=== PATIENT | female | born 1950 | race Caucasian/White ===

== ENCOUNTER 2017-03-24 09:30 | Outpatient (RCR) | payer MEDICARE, OTHER, SELFPAY | END 2017-03-31 23:59 | LOC: DC 09:30 | PROVIDERS: Family Provider Family Medicine; PCP Family Medicine; Visit Provider Family Medicine | DX: E11.9 Type 2 diabetes mellitus without complications (principal); Z71.3 Dietary counseling and surveillance | CPT/HCPCS: G0109 ==

== ENCOUNTER 2017-10-21 08:30 | Outpatient (RCR) | payer MEDICARE, OTHER, SELFPAY ==
--- NOTE | 2017-08-02 09:30 | DT_ITS ---
This patient was seen during an EMR downtime August 02, 2017 - August 09, 2017. This patient may have a combination of paper and electronic documentation or all paper documentation. All documentation is viewable within the e-chart portion of [facility] for each patient visit.
--- NOTE | 2017-08-10 16:57 | HP.PTEVAL ---
Patient's Visit Information SHANTEL FOX is a 66 year old F referred to Physical Therapy by Cristina Segovia DPM with a diagnosis of Gait instability. Date of Evaluation: 08/02/17 Physical Therapist: Augusto Hutchins DPT, OC - Visit Plan Frequency: 2 Duration: 4 Plan: Neurocom balance assessment and 2x/week for 4 weeks for LE strength adn balance activities - Subjective Subjective: Has diabetic neuropathy for 3 years. Makes baalnce challenging. Getting out of bed can be difficult. Needs to hang on to use steps. No AD needed. Sleep Ok.Not employed. Basic ADLs OK. Enjoys [employer] sports whose age is 24 to 11 yo. Needs to hold on to climb bleachers and careful on grass. Has to do steps one [place]. One fall walking dog - Pain foot diabetic Pain Intensity (Out of 10): 3 Pain Intensity Range: 3 - Objective LE strength 4/5 knees adn ankles and 4- in hips. reflexes 2/3 patella and achilles. Sensation decreased in bottom of feet. ROM and flexibility in LE WFL. Coordination reciprocal toe and heel tapping good and garcia to heel goodl. Romberg eo 30 sec, ec 30 sec foam also 30 sec eo/ec - Balance Scores Functional Gait Assessment Score: 24 % Disability: 20.0000 - Goals Goal 1:: I approp strength and balance ex Goal Time Frame: 4-6 Weeks Goal 2:: Neurocom balance assess complete Goal Time Frame: 2 Weeks Goal 3:: Feel balance 50% improved overall Goal Time Frame: 4-6 Weeks Goal 4:: FGA 25/30 to diminish fall risk Goal Time Frame: 4-6 Weeks - Rehabilitation Potential Physical Therapy Diagnosis: Unstable gait. Rehabilitation Potential: Fair - Anticipated Interventions Patient/Client Instruction: Educate patient on: Condition, Plan of Care For the Purpose of:: To improve balance Therapeutic Exercise to Include: Strength training, Balance training For the Purpose of:: To decrease pain, To improve safety with gait, To improve safety Thank you for the opportunity to evaluate your patient. For Medicare and Medicare HMO plans, please review the plan of care and approve it. It will need to be FAXED BACK to us at [phone] for Medicare purposes. Please let me know if there are questions or concerns regarding this plan of care. Physician Signature: Date:
--- NOTE | 2017-08-10 17:03 | HP.PTEVAL_ITS ---
Patient's Visit Information SHANTEL FOX is a 66 year old F referred to Physical Therapy by Cristina Segovia DPM with a diagnosis of Gait instability. Date of Evaluation: 08/02/17 Physical Therapist: Augusto Hutchins DPT, OC - Visit Plan Frequency: 2 Duration: 4 Plan: Neurocom balance assessment and 2x/week for 4 weeks for LE strength adn balance activities - Subjective Subjective: Has diabetic neuropathy for 3 years. Makes baalnce challenging. Getting out of bed can be difficult. Needs to hang on to use steps. No AD needed. Sleep Ok.Not employed. Basic ADLs OK. Enjoys [employer] sports whose age is 24 to 11 yo. Needs to hold on to climb bleachers and careful on grass. Has to do steps one at at [employer]. One fall walking dog - Pain foot diabetic Pain Intensity (Out of 10): 3 Pain Intensity Range: 3 - Objective LE strength 4/5 knees adn ankles and 4- in hips. reflexes 2/3 patella and achilles. Sensation decreased in bottom of feet. ROM and flexibility in LE WFL. Coordination reciprocal toe and heel tapping good and garcia to heel goodl. Romberg eo 30 sec, ec 30 sec foam also 30 sec eo/ec - Balance Scores Functional Gait Assessment Score: 24 % Disability: 20.0000 - Goals Goal 1:: I approp strength and balance ex Goal Time Frame: 4-6 Weeks Goal 2:: Neurocom balance assess complete Goal Time Frame: 2 Weeks Goal 3:: Feel balance 50% improved overall Goal Time Frame: 4-6 Weeks Goal 4:: FGA 25/30 to diminish fall risk Goal Time Frame: 4-6 Weeks - Rehabilitation Potential Physical Therapy Diagnosis: Unstable gait. Rehabilitation Potential: Fair - Anticipated Interventions Patient/Client Instruction: Educate patient on: Condition, Plan of Care For the Purpose of:: To improve balance Therapeutic Exercise to Include: Strength training, Balance training For the Purpose of:: To decrease pain, To improve safety with gait, To improve safety Thank you for the opportunity to evaluate your patient. For Medicare and Medicare HMO plans, please review the plan of care and approve it. It will need to be FAXED BACK to us at [phone] for Medicare purposes. Please let me know if there are questions or concerns regarding this plan of care. Physician Signature: Date:
--- NOTE | 2017-08-24 11:57 | HP.PTCOM ---
PT Communication Note 08/24/[address] Cristina Segovia, DPChris , Thank you for the referral of Katherine to [facility] for balance testing. I have enclosed a copy of the results for your review. In summation, she scored low on the somatosensory portion of the Sensory Organization Test. She scored poorly on the posterior translations on the Motor Control Test. Forward and R excursion was low on the Limits of Stability Test. With these results in mind, I plan to see her 2x/week for 4 weeks for instruction and progression of LE strength and balance exercises to address the above deficits and work toward independent HEP. Please do not hesitate to call me if you have questions. Thank you. Sincerely, Augusto Hutchins DPT, OC Contact Information
--- NOTE | 2017-08-24 12:00 | HP.PTCOM_ITS ---
PT Communication Note 08/24/[address] Cristina Segovia, DPChris , Thank you for the referral of Katherine to [facility] for balance testing. I have enclosed a copy of the results for your review. In summation, she scored low on the somatosensory portion of the Sensory Organization Test. She scored poorly on the posterior translations on the Motor Control Test. Forward and R excursion was low on the Limits of Stability Test. With these results in mind, I plan to see her 2x/week for 4 weeks for instruction and progression of LE strength and balance exercises to address the above deficits and work toward independent HEP. Please do not hesitate to call me if you have questions. Thank you. Sincerely, Augusto Hutchins DPT, OC Contact Information
--- NOTE | 2017-12-16 11:50 | HP.PT.NRP ---
HP - Discharge Summary (1) - Patient Information SHANTEL FOX was seen in my office for initial evaluation on 08/02/17. The following Plan of Care was established for this patient: Initial Frequency: 2 Initial Duration: 4 - Anticipated Interventions Patient/Client Instruction: Educate patient on: Condition, Plan of Care For the Purpose of:: To improve balance Therapeutic Exercise to Include: Strength training, Balance training For the Purpose of:: To decrease pain, To improve safety with gait, To improve safety This patient was last seen in our office 10/21/17. Pertinent comments regarding their Physical therapy will appear below: Pt seen 8 visits kaiden cancelled his last two adn neglected to reschedule. It has been almsot two months and I will discontinue due to nonattendance. At this point I will be discontinuing this patient from physical therapy. I would be happy to see this patient again in the future if found appropriate by the physician. Thank you! Augusto Hutchins, DPT, OC
== END 2017-10-21 19:00 | disposition home or self-care (01) ==
LOC: PT 08:30
PROVIDERS: Family Provider Family Medicine; PCP Family Medicine; Visit Provider Podiatrist
DX: R26.2 Difficulty in walking, not elsewhere classified (principal); R26.9 Unspecified abnormalities of gait and mobility
CPT/HCPCS: 97110; 97162; 97750

== ENCOUNTER → 2018-03-24 15:26 | Outpatient (CLI) | payer MEDICARE, OTHER, SELFPAY ==
--- NOTE | 2018-03-24 15:32 | RAD_ITS ---
HISTORY: Pain COMPARISON: None FINDINGS: XR right ankle 3 views No fracture or acute disease. The tibiotalar joint space appears preserved. No bony erosions. Mild soft tissue swelling of the lateral ankle and mild atherosclerotic calcifications. Plantar calcaneal spur. RAD/Ankle min 3 Views IMPRESSION: 1. No fracture or acute disease. 2. Atherosclerotic calcifications and mild lateral soft tissue swelling. 3. The ankle joint is preserved. at 0540 Reported and signed by: Sundeep Howard MD Electronically Signed: Sundeep Howard, at 5:39 EST Tel , Service support ,
== END ==
PROVIDERS: Family Provider Family Medicine; PCP Family Medicine; Referring Provider Family Medicine; Visit Provider Family Medicine
DX: M25.571 Pain in right ankle and joints of right foot (principal)
CPT/HCPCS: 73610

== ENCOUNTER 2018-06-23 10:00 | Outpatient (RCR) | payer MEDICARE, OTHER, SELFPAY ==
--- NOTE | 2018-04-25 14:49 | HP.PTEVAL ---
Patient's Visit Information SHANTEL FOX is a 67 year old F referred to Physical Therapy by Augustina Stanley with a diagnosis of Right Knee. Date of Evaluation: 04/25/18 Physical Therapist: Graciela Wick DPT - Visit Plan Frequency: 2x /Week Duration: 4 Weeks Plan: Focus on LE and core s/s with functional mobility. - Subjective Findings: Patient reports that she was sent due to needing a knee replacement- doesn't want to but and would like to do therapy first. Right knee pain on/off for a long time but in November she was in [employer] and attempted to get in her brothers truck and her knee buckled under her. The right foot got caught under the seat and twisted the right ankle. The knee has been more painful and giving out more since then. Does not have any pain in the knee it just gives out on her. Does feel it when she goes up/down stairs. Has not had any recent falls. Uses the cane in the community and when doing the stairs at home. The ankle is not painful either just sore. Biggest concern is that she feels unstable- but does have neuropathy. Does have slight numbness in both feet. Sleep: no problems. Has had MRI and x-rays on the knee and ankle. PMHx/Meds: scanned in chart. - Objective Posture: FH, RS, Increased kyphosis. Gait: antalgic- decreased stance on the right LE with poor heel/toe pattern- uses straight cane in right hand. Stairs: asc/desc non recip- ascends using right LE and 2 HR with significant UE A and descends with the left with 2 HR- educated to attempt with good foot up and bad foot down- pt was confused. Balance: unable to SLS but can weight shift. HR: decreased by 75% TR: decreased by 25% bilaterally. Palpation: not tender to touch. ROM: 0-115 degrees. Strength: Ankle 4 ways: 4/5, Knee: 4/5, Hip: 4-/5 throughout Core: fair minus. Flex: HS: moderate, Gastroc: moderate - Goals Goal 1:: Patient will be I with HEP and progression Goal 2:: Patient will ambulate >300 feet with a normalized gait pattern Goal Time Frame: 4-6 Weeks Goal 3:: Patient will asc/desc 8 stairs recip with 1 HR Goal Time Frame: 4-6 Weeks Goal 4:: Patient will demo 4+/5 strength in LE Goal Time Frame: 4-6 Weeks - Rehabilitation Potential Physical Therapy Diagnosis: Patient presents with hypomobility- she has decreased strength and muscular endurance leading to poor balance and increased pain with ADL's. - Anticipated Interventions Patient/Client Instruction: Educate patient on: Benefits of Fitness Program Therapeutic Exercise to Include: Strength training, Endurance training, Balance training, Body mechanics, Postural training, Flexibilty training, Gait and locomotor training, Dynamic Lumbar Stabilization For the Purpose of:: To improve muscle performance and motor function Cryotherapy (ice pack, ice massage): Yes Thermo therapy (hot pack): Yes For the Purpose of:: To decrease pain Thank you for the opportunity to evaluate your patient. For Medicare and Medicare HMO plans, please review the plan of care and approve it. It will need to be FAXED BACK to us at [phone] for Medicare purposes. For Medicare only, by signing this I certify the plan of care. Please let me know if there are questions or concerns regarding this plan of care. Physician Signature: Date:
--- NOTE | 2018-05-23 09:54 | HP.PTEVAL_ITS ---
Patient's Visit Information SHANTEL FOX is a 67 year old F referred to Physical Therapy by Augustina Stanley with a diagnosis of Right Knee. Date of Evaluation: 04/25/18 Physical Therapist: Graciela Wick DPT - Visit Plan Frequency: 2x /Week Duration: 4 Weeks Plan: Continue 2x a week for 4 weeks- working towards I gym program for [employer] - Subjective Findings: Patient reports that she was sent due to needing a knee replacement- doesn't want to but and would like to do therapy first. Right knee pain on/off for a long time but in November she was in [employer] and attempted to get in her brothers truck and her knee buckled under her. The right foot got caught under the seat and twisted the right ankle. The knee has been more painful and giving out more since then. Does not have any pain in the knee it just gives out on her. Does feel it when she goes up/down stairs. Has not had any recent falls. Uses the cane in the community and when doing the stairs at home. The ankle is not painful either just sore. Biggest concern is that she feels unstable- but does have neuropathy. Does have slight numbness in both feet. Sleep: no problems. Has had MRI and x-rays on the knee and ankle. PMHx/Meds: scanned in chart. - Pain R knee Pain Intensity (Out of 10): 1 R ankle Pain Intensity (Out of 10): 0 Comment: medial aspect. L knee Pain Intensity (Out of 10): 0 - Objective Posture: FH, RS, Increased kyphosis. Gait: antalgic- decreased stance on the right LE with poor heel/toe pattern- uses straight cane in right hand. Stairs: asc/desc non recip- ascends using right LE and 2 HR with significant UE A and descends with the left with 2 HR- educated to attempt with good foot up and bad foot down- pt was confused. Balance: unable to SLS but can weight shift. HR: decreased by 75% TR: decreased by 25% bilaterally. Palpation: not tender to touch. ROM: 0-115 degrees. Strength: Ankle 4 ways: 4/5, Knee: 4/5, Hip: 4-/5 throughout Core: fair minus. Flex: HS: moderate, Gastroc: moderate - Goals Goal 1:: Patient will be I with HEP and progression Goal 2:: Patient will ambulate >300 feet with a normalized gait pattern Goal Time Frame: 4-6 Weeks Goal 3:: Patient will asc/desc 8 stairs recip with 1 HR Goal Time Frame: 4-6 Weeks Goal 4:: Patient will demo 4+/5 strength in LE Goal Time Frame: 4-6 Weeks - Rehabilitation Potential Physical Therapy Diagnosis: Patient presents with hypomobility- she has decreased strength and muscular endurance leading to poor balance and increased pain with ADL's. - Anticipated Interventions Patient/Client Instruction: Educate patient on: Benefits of Fitness Program Therapeutic Exercise to Include: Strength training, Endurance training, Balance training, Body mechanics, Postural training, Flexibilty training, Gait and locomotor training, Dynamic Lumbar Stabilization For the Purpose of:: To improve muscle performance and motor function Cryotherapy (ice pack, ice massage): Yes Thermo therapy (hot pack): Yes For the Purpose of:: To decrease pain Thank you for the opportunity to evaluate your patient. For Medicare and Medicare HMO plans, please review the plan of care and approve it. It will need to be FAXED BACK to us at [phone] for Medicare purposes. For Medicare only, by signing this I certify the plan of care. Please let me know if there are questions or concerns regarding this plan of care. Physician Signature: Date:
--- NOTE | 2018-06-23 10:44 | HP.PTDCSUM ---
HP - PT D/C Summary It has been my pleasure to treat SHANTEL FOX under orders from Augustina Stanley, for the diagnosis of Right Knee for a total of 13 visit(s). Discharge Date: Please see the following information for a summary of their discharge status. - Subjective Subjective: Patient reports that the knee goes out a lot- she twisted in [employer] so its sore today. Feels confident in the exercise program. But feels stronger with the exercises and does feel a little better. Wants to continue to put her knee replacement off but its getting to the point where she thinks it might just be worth it. - Pain R knee Pain Intensity (Out of 10): 0 R ankle Pain Intensity (Out of 10): 1 L knee Pain Intensity (Out of 10): 0 - Overall Improvement % Improvement: 60 - Objective Objective/Function: Posture: FH, RS, Increased kyphosis. Gait: antalgic- decreased stance on the right LE with poor heel/toe pattern- uses straight cane in right hand. Stairs: asc/desc recip with 2 HR Balance: unable to SLS but can weight shift. HR: decreased by 50% TR: decreased by 25% bilaterally. Palpation: not tender to touch. ROM: 0-115 degrees. Strength: Ankle 4 ways: 4+/5, Knee: 4/+5, Hip: 4/5 throughout Core: fair minus. Flex: HS: moderate, Gastroc: moderate - Goals Goal 1:: Patient will be I with HEP and progression Goal Progress: Goal Met Goal 2:: Patient will ambulate >300 feet with a normalized gait pattern Goal Progress: Progressing Goal 3:: Patient will asc/desc 8 stairs recip with 1 HR Goal Progress: Progressing Goal 4:: Patient will demo 4+/5 strength in LE Goal Progress: Progressing - Plan Plan: Discharge to HEP - D/C Information If there are questions or concerns regarding this patient's physical therapy, please feel free to call me at [phone]. Thank you for the referral of this patient. Sincerely, Graciela Wick DPT
== END 2018-06-23 19:00 | disposition home or self-care (01) ==
LOC: PT 10:00
PROVIDERS: Family Provider Family Medicine; PCP Family Medicine; Referring Provider Physician Assistant; Visit Provider Physician Assistant
DX: M25.561 Pain in right knee (principal); M17.11 Unilateral primary osteoarthritis, right knee; S86.011D Strain of right Achilles tendon, subsequent encounter
CPT/HCPCS: 97110; 97116; 97161; 97164

== ENCOUNTER → 2018-09-19 09:13 | Outpatient (CLI) | payer MEDICARE, OTHER, SELFPAY ==
[2018-09-19 10:10] LABS: Hemoglobin A1c 5.9 % (4.2-6.3)
[2018-09-19 10:17] LABS: Anion Gap 5 (5-15); BUN 15 mg/dL (7-18); BUN/Creat Ratio 16.9 RATIO (10-20); Calcium,Total 9.1 mg/dL (8.5-10.1); Chloride 106 mmol/L (98-107); Cholesterol 130 mg/dL (200); Creatinine, Serum 0.89 mg/dL (0.55-1.02); EST Glomerular Filtration Rate 67 mL/min (>60); Est Glom Filt Rate - Afr Amer 81 mL/min (>60); Glucose 132 mg/dL (74-106); High Density Lipoprotein 58 mg/dL; Potassium 4.1 mmol/L (3.5-5.1); Sodium Level 137 mmol/L (136-145); Triglycerides 103 mg/dL; Very Low Density Lipoprotein 21 mg/dL (5-40)
== END ==
PROVIDERS: Family Provider Family Medicine; PCP Family Medicine; Referring Provider Family Medicine; Visit Provider Family Medicine
DX: I10 Essential (primary) hypertension (principal); E11.9 Type 2 diabetes mellitus without complications; E78.00 Pure hypercholesterolemia, unspecified
CPT/HCPCS: 36415; 80048; 80061; 83036

== ENCOUNTER 2018-11-08 16:00 | Outpatient (RCR) | payer MEDICARE, OTHER, SELFPAY ==
[2018-11-01 14:46] VITALS: BP 162/93; PULSE 72; RESP 18; TEMP 36.4; BMI 39.2
--- NOTE | 2018-11-01 16:31 | PCM.WC.HP ---
(1) Ulcer of skin of breast Status: Chronic Code(s): N61.1 - Abscess of the breast and nipple (2) Type 2 diabetes mellitus Status: Chronic Code(s): E11.9 - Type 2 diabetes mellitus without complications History of Present Illness Date of Service: 11/01/18 Chief Complaint: Right breast non healing ulcer History of Wound: She has a history of skin abscesses under her breasts that she typically will use warm compresses and then use a sterilized needle to help drain the infection. On 09/22/18, she developed a small skin abscess and decided to use a heating pad and developed a burn. She went to her PCP who had her using hydrogen peroxide on it followed by a burn cream daily. It has since developed into a non healing skin ulcer. She went to see Dr. Woodson for a consult to have her right knee replaced and he referred her to the wound center for the ulcer on the right breast because he will not do surgery on her until the breast ulcer is healed. Wound care will be Elizabeth daily. Today she denies any fever, chills and states she has a good appetite. Past Medical History Past Medical History: Chronic Problems Ulcer of skin of breast (Chronic) Type 2 diabetes mellitus (Chronic) Allergies/Adverse Reactions: Allergies Sulfa (Sulfonamide Antibiotics) Allergy (Verified 11/01/18 15:08) Rash Home Medications: Ambulatory Orders Medication Instructions Recorded Atenolol 50 mg PO DAILY 11/01/18 Lisinopril 20 mg PO BID 11/01/18 Lorazepam [Ativan] 0.5 mg PO BID PRN PRN 11/01/18 Metformin HCl 500 mg PO BID 11/01/18 Multivit with Calcium,Iron,Min 1 PO DAILY 11/01/18 [Multiple Vitamins For Women] Smoking Status: Never smoker Review of Systems Constitutional: Denies: Chills, Fever, Weight Change Eyes: Denies: Pain, Vision Change HEENT: Denies: Difficulty Hearing, Difficulty Swallowing, Sinus Congestion Cardiovascular: Denies: Chest Pain, Palpitations Respiratory: Denies: Cough, Shortness of Breath Gastrointestinal: Denies: Diarrhea, Nausea, Vomiting Musculoskeletal: Reports: Joint Pain - right knee pain Skin: Reports: Wounds - ulcer on right lower breast above the inframammory fold. Neurological: Denies: Balance problems, Blurred vision, Difficulty swallowing Psychiatric: Denies: Anxiety Endocrine: Denies: Heat/ Cold Intolerance, Polydipsia, Polyuria Hematologic/ Lymphatic: Denies: Easy Bruising, Easy Bleeding - Physical Exam Vital Signs Temp Pulse Resp BP 97.5 F L 72 18 162/93 H 11/01/18 14:46 11/01/18 14:46 11/01/18 14:46 11/01/18 14:46 General: Alert, Oriented x3, Cooperative HEENT: Atraumatic Oral: Moist Mucosa Lungs: Clear to auscultation, Normal air movement Cardiovascular: Regular rate, Regular Rhythm Abdomen: Bowel Sounds Present, Soft Extremities: No edema, Peripheral Pulses Normal Skin: Ulcer/ Wound - Right breast above the inframammory fold Wound Measurements and Assessment WC - Nurse 1 - General Ulcer Measurement Start: 11/01/18 14:45 Freq: Status: Active Protocol: Activity Type Activity Date Activity User E-Sign Co-Sign Detail Recorded Client Recorded Date Recorded By Document 11/01/18 14:46 MW [id number] 11/01/18 14:56 MW 11/01/18 14:46 Wound Center Nurse 1 [Ulcer Assessment] #1 right breast -Combined with other wound No -Current Size (cm) - Length 1.5 -Current Size (cm) - Width 2.6 -Current Size (cm) - Depth 0.1 -Total Square Cm 3.90 -Date of Last Picture (Recall this 11/01/18 field) -Photo Taken Yes -Epithelialization Small 1-33% -Tunneling No -Undermining/Tunneling No -Circular Undermining No -Exudate Amt Medium -Exudate Type Serosanguineous -Wound Margin Flat & Intact -Granulation Amt Medium (34-66%) -Granulation [place] -Slough/Fibrin Yes -Necrosis Amt Medium (34-66%) -Necrotic Tissue Type Adherent Slough -Structure Exposed N/A -Texture (Vaishali-wound Skin Appearance) Assessed, Scarring -Moisture (Vaishali-wound Skin Appearance No Abnormality, ) Assessed -Color (Vaishali-wound Skin Appearance) No Abnormality, Assessed -Temperature (Vaishali-wound Skin No Abnormality Appearance) (Pt Warm) -Tenderness on Palpation (Vaishali-wound No Skin Appearance) -Ulcer Cleansing Rinsed/ Irrigated with Saline -Foul Odor after Cleansing No -Anesthetic Used 4% Lidocaine Solution,5% Lidocaine Gel [Edema Assessment] -Lower Limb Edema Present No WC - Nurse 2 - General Ulcer CM Notes Start: 11/01/18 14:45 Freq: Status: Active Protocol: Activity Type Activity Date Activity User E-Sign Co-Sign Detail Recorded Client Recorded Date Recorded By Document 11/01/18 15:23 [id number] 11/01/18 15:25 11/01/18 15:23 Wound Center Nurse 2 [Procedure/Treatment] #1 right breast -Time 15:24 -Correct Patient Yes -Correct Side, Site, Position Yes -Correct Procedure Yes -Procedure Performed Yes -Type of Procedure Debridement -Clinical Debridement Subcutaneous -Post Debridement Size (cm) - Length 1.5 -Post Debridement Size (cm) - Width 2.5 -Post Debridement Size (cm) - Depth 0.2 -Total Square Cm 3.75 -Wound/Ulcer Outcome Not Healed -Ulcer Cleansing Rinsed/ Irrigated with Saline -Foul Odor after Cleansing No -Bioengineered Tissue No -Bleeding Controlled with Pressure -Offloading No -Treatment Response Procedure Tolerated Well [See Physician Procedure note for Specifics] Pain Scale: 0-10 Numeric [Pain] -Is Patient Pain Free? Yes Musculoskeletal: No Tenderness to Palpation of Joints or Extremities Neurological: Neuro grossly intact Psych/Mental Status: Normal Affect, Appropriate Debridement Note Post-Debridement Measurements/Treatment - Nurse 2 - General Ulcer CM Notes Start: 11/01/18 14:45 Freq: Status: Active Protocol: Activity Type Activity Date Activity User E-Sign Co-Sign Detail Recorded Client Recorded Date Recorded By Document 11/01/18 15:23 [id number] 11/01/18 15:25 11/01/18 15:23 Wound Center Nurse 2 #1 right breast -Time 15:24 -Correct Patient Yes -Correct Side, Site, Position Yes -Correct Procedure Yes -Procedure Performed Yes -Type of Procedure Debridement -Clinical Debridement Subcutaneous -Post Debridement Size (cm) - Length 1.5 -Post Debridement Size (cm) - Width 2.5 -Post Debridement Size (cm) - Depth 0.2 -Total Square Cm 3.75 -Wound/Ulcer Outcome Not Healed -Ulcer Cleansing Rinsed/ Irrigated with Saline -Foul Odor after Cleansing No -Bioengineered Tissue No -Bleeding Controlled with Pressure -Offloading No -Treatment Response Procedure Tolerated Well Pain Scale: 0-10 Numeric Is Patient Pain Free? Yes Wound debrided: right breast Laterality: Right Type of Debridement: Excisional debridement Anesthesia Used: 4% Lidocaine Solution, 5% Lidocaine Gel Depth: Down to and including healthy tissue, in the subcutaneous layer Percentage of wound debrided: 100 Instrument Used: 7mm curette Tissue Removed: Subcutaneous tissue and slough Severity: Fat Layer Exposed Amount of bleeding with debridement: Mild Bleeding Controlled with: Pressure, Compression and gauze Patient tolerated procedure well Assessment/Plan Assessment: 1. Ulcer of skin of right breast. 2. Type 2 DM Plan: Patient was seen and evaluated at the wound healing center today and a subcutaneous debridement was performed. The patient tolerated the procedure well. Wound care will be daily Elizabeth dressing changes to the right breast ulcer. She will follow up in one week. Code Visit Office Visits / Consults: [id number] OV L3 Est - 25 modifier [id number]: [id number] Demetria subq tissue 20 sq cm/<
[2018-11-08 16:14] VITALS: BP 119/69; PULSE 70; RESP 18; TEMP 36.1; BMI 39.2
--- NOTE | 2018-11-08 16:51 | PN.PCM_ITS ---
(1) Ulcer of skin of breast Status: Chronic Current Visit: Yes Code(s): N61.1 - Abscess of the breast and nipple (2) Type 2 diabetes mellitus Status: Chronic Current Visit: Yes Code(s): E11.9 - Type 2 diabetes mellitus without complications Type of Wound Date of Service: 11/08/18 Chief Complaint: Right breast non healing ulcer History of Wound: She has a history of skin abscesses under her breasts that she typically will use warm compresses and then use a sterilized needle to help drain the infection. On 09/22/18, she developed a small skin abscess and decided to use a heating pad and developed a burn. She went to her PCP who had her using hydrogen peroxide on it followed by a burn cream daily. It has since developed into a non healing skin ulcer. She went to see Dr. Woodson for a consult to have her right knee replaced and he referred her to the wound center for the ulcer on the right breast because he will not do surgery on her until the breast ulcer is healed. Wound care will be Elizabeth daily. Today she denies any fever, chills and states she has a good appetite. Progress of Wound: Improved - Physical Exam Vital Signs Temp Pulse Resp BP 96.9 F L 70 18 119/69 11/08/18 16:14 11/08/18 16:14 11/08/18 16:14 11/08/18 16:14 General: Alert, Oriented x3, Cooperative HEENT: Atraumatic Oral: Moist Mucosa Lungs: Normal air movement Cardiovascular: Regular rate Abdomen: Soft Extremities: No edema, Peripheral Pulses Normal Skin: Ulcer/ Wound - Right breast above the intermammory fold Wound Measurements and Assessment WC - Nurse 1 - General Ulcer Measurement Start: 11/01/18 14:45 Freq: Status: Active Protocol: Activity Type Activity Date Activity User E-Sign Co-Sign Detail Recorded Client Recorded Date Recorded By Document 11/08/18 16:14 DL [id number] 11/08/18 16:20 DL 11/08/18 16:14 Wound Center Nurse 1 [Ulcer Assessment] #1 right breast -Current Size (cm) - Length 0.9 -Current Size (cm) - Width 2 -Current Size (cm) - Depth 0.1 -Total Square Cm 1.8 -Photo Taken No -Exudate Amt None Present -Wound Margin Flat & Intact -Granulation Amt Large (67-100%) -Granulation Quality [place] -Necrosis Amt Small (1-33%) -Necrotic Tissue Type Adherent Slough -Structure Exposed N/A -Texture (Vaishali-wound Skin Appearance) Scarring -Moisture (Vaishali-wound Skin Appearance No Abnormality ) -Color (Vaishali-wound Skin Appearance) No Abnormality -Temperature (Vaishali-wound Skin No Abnormality Appearance) (Pt Warm) -Tenderness on Palpation (Vaishali-wound No Skin Appearance) -Ulcer Cleansing Rinsed/ Irrigated with Saline -Foul Odor after Cleansing No -Anesthetic Used 4% Lidocaine Solution - Nurse 2 - General Ulcer CM Notes Start: 11/01/18 14:45 Freq: Status: Active Protocol: Activity Type Activity Date Activity User E-Sign Co-Sign Detail Recorded Client Recorded Date Recorded By Document 11/08/18 16:45 [id number] 11/08/18 16:46 11/08/18 16:45 Wound Center Nurse 2 [Procedure/Treatment] -Time 16:46 -Correct Patient Yes -Correct Side, Site, Position Yes -Correct Procedure Yes -Procedure Performed Yes -Type of Procedure Debridement -Clinical Debridement Subcutaneous -Post Debridement Size (cm) - Length 0.8 -Post Debridement Size (cm) - Width 2.0 -Post Debridement Size (cm) - Depth 0.1 -Total Square Cm 1.60 -Wound/Ulcer Outcome Not Healed -Ulcer Cleansing Rinsed/ Irrigated with Saline -Foul Odor after Cleansing No -Bioengineered Tissue No -Bleeding Controlled with Pressure -Offloading No -Treatment Response Procedure Tolerated Well [See Physician Procedure note for Specifics] Pain Scale: 0-10 Numeric [Pain] -Is Patient Pain Free? Yes Musculoskeletal: No Tenderness to Palpation of Joints or Extremities Neurological: Neuro grossly intact Psych/Mental Status: Normal Affect, Appropriate Debridement Note Post-Debridement Measurements/Treatment - Nurse 2 - General Ulcer CM Notes Start: 11/01/18 14:45 Freq: Status: Active Protocol: Activity Type Activity Date Activity User E-Sign Co-Sign Detail Recorded Client Recorded Date Recorded By Document 11/01/18 15:23 [id number] 11/01/18 15:25 Document 11/08/18 16:45 [id number] 11/08/18 16:46 11/01/18 11/08/18 15:23 16:45 Wound Center Nurse 2 #1 right breast -Time 15:24 16:46 -Correct Patient Yes Yes -Correct Side, Site, Position Yes Yes -Correct Procedure Yes Yes -Procedure Performed Yes Yes -Type of Procedure Debridement Debridement -Clinical Debridement Subcutaneous Subcutaneous -Post Debridement Size (cm) - Length 1.5 0.8 -Post Debridement Size (cm) - Width 2.5 2.0 -Post Debridement Size (cm) - Depth 0.2 0.1 -Total Square Cm 3.75 1.60 -Wound/Ulcer Outcome Not Healed Not Healed -Ulcer Cleansing Rinsed/ Rinsed/ Irrigated with Irrigated with Saline Saline -Foul Odor after Cleansing No No -Bioengineered Tissue No No -Bleeding Controlled with Pressure Pressure -Offloading No No -Treatment Response Procedure Procedure Tolerated Well Tolerated Well Pain Scale: 0-10 Numeric Is Patient Pain Free? Yes Yes Wound debrided: Right breast ulcer Laterality: Right Type of Debridement: Excisional debridement Anesthesia Used: 4% Lidocaine Solution, 5% Lidocaine Gel Depth: Down to and including healthy tissue, in the subcutaneous layer Percentage of wound debrided: 100 Instrument Used: 5mm curette Tissue Removed: Subcutaneous tissue and slough Severity: Fat Layer Exposed Amount of bleeding with debridement: Mild Bleeding Controlled with: Pressure, Compression and gauze Patient tolerated procedure well Assessment/Plan Active Problems Ulcer of skin of breast (Chronic) Type 2 diabetes mellitus (Chronic) Assessment: 1. Ulcer of skin of right breast. 2. Type 2 DM Plan: Patient was seen and evaluated at the wound healing center today and a subcutaneous debridement was performed. The patient tolerated the procedure well. Wound care will be daily Elizabeth dressing changes to the right breast ulcer. She will follow up in one week. Code Visit [id number]: [id number] Demetria subq tissue 20 sq cm/<
== END 2018-11-28 23:59 ==
LOC: WC 16:00
PROVIDERS: Family Provider Family Medicine; PCP Family Medicine; Visit Provider Nurse Practitioner Family
DX: E11.622 Type 2 diabetes mellitus with other skin ulcer (principal); N61.1 Abscess of the breast and nipple; L98.492 Non-pressure chronic ulcer of skin of other sites with fat layer exposed
CPT/HCPCS: 11042; 99212; G0463

== ENCOUNTER → 2019-01-18 10:10 | Outpatient (CLI) | payer MEDICARE, OTHER, SELFPAY ==
[2019-01-18 12:22] LABS: Absolute Lymphocyte Count 1.77 X10^3/uL (0.83-4.51); Basophil# 0.03 X10^3/uL; Basophil% 0.5 % (0-1); Eosinophils% 3.1 % (0-5); Lymphocyte # 1.77 X10^3/ul (4.0); Lymphocyte % 27.4 % (19-41); Mean Corp Hgb Conc 33.3 g/dL (32-36); Mean Corpuscular Hgb 29.7 pg (27.0-32.0); Mean Platelet Vol. 9.8 fl (6.2-12.0); Monocyte# 0.45 X10^3/uL; NRBC Flagged by Analyzer 0 % (0-5); Neutrophil # 3.99 X10^3/uL (2.7-7.7); Neutrophil % 61.7 % (47-70); Platelet Count 122 K/mm3 (150-450); RBC Distribution Width CV 13.3 % (11.6-14.6); RBC Distribution Width SD 43.5 fl (35.1-43.9); Red Blood Count 4.72 M/mm3 (4.2-5.4); White Blood Count 6.5 K/mm3 (4.4-11.0)
[2019-01-18 12:37] LABS: ALB/GLOB Ratio 0.9 RATIO (0.9-2.4); AST(SGOT) 25 U/L (15-37); Alanine Aminotransfer ALT/SGPT 23 U/L (13-56); Albumin, Serum 3.4 g/dL (3.2-5.0); Alkaline Phosphatase 104 U/L (45-117); Anion Gap 6 (5-15); BUN 12 mg/dL (7-18); BUN/Creat Ratio 14.1 RATIO (10-20); Calcium,Total 9.1 mg/dL (8.5-10.1); Chloride 107 mmol/L (98-107); Cholesterol 174 mg/dL (200); Creatinine, Serum 0.85 mg/dL (0.55-1.02); EST Glomerular Filtration Rate 70 mL/min (>60); Est Glom Filt Rate - Afr Amer 85 mL/min (>60); Globulin 3.8 g/dL (2.2-4.2); Glucose 139 mg/dL (74-106); High Density Lipoprotein 57 mg/dL; Potassium 3.9 mmol/L (3.5-5.1); Protein, Total 7.2 g/dL (6.4-8.2); Sodium Level 139 mmol/L (136-145); Triglycerides 154 mg/dL; Very Low Density Lipoprotein 31 mg/dL (5-40)
[2019-01-18 12:42] LABS: Hemoglobin A1c 5.7 % (4.2-6.3)
[2019-01-18 12:51] LABS: Vitamin B12 1413 pg/mL (211-911)
[2019-01-22 11:07] LABS: Vitamin B1, Thiamine 170.3 nmol/L (66.5-200.0)
== END ==
PROVIDERS: Family Provider Family Medicine; PCP Family Medicine; Referring Provider Family Medicine; Visit Provider Family Medicine
DX: I10 Essential (primary) hypertension (principal); E78.00 Pure hypercholesterolemia, unspecified; E11.9 Type 2 diabetes mellitus without complications; G62.9 Polyneuropathy, unspecified
CPT/HCPCS: 36415; 80053; 80061; 82607; 83036; 84425; 85025

== ENCOUNTER 2019-07-22 18:51 | Emergency (ER) | payer MEDICARE, OTHER, SELFPAY ==
[2019-07-22 18:52] VITALS: BP 185/97; PULSE 115; RESP 20; TEMP 37.5; O2SAT 95; BMI 40.2
[2019-07-22 18:53] VITALS: BP 185/97; PULSE 115; RESP 20; TEMP 37.5; O2SAT 95
--- NOTE | 2019-07-22 19:26 | ED.DCSUM_ITS ---
History of Present Illness Chief Complaint: Abscess Informant: Patient Narrative: Patient states that for over 20 years she has had a prescription in the right breast fold. Occasionally it swells and becomes infected. This particular episode started earlier in the week. She saw primary care and was placed on Keflex and doxycycline. She states that she has had a fever and seems to be getting worse. Her wound is complicated by the fact that she has scar tissue from prior second and third-degree espinal. Past Medical History - Allergies and Home Meds Allergies/Adverse Reactions: Allergies Sulfa (Sulfonamide Antibiotics) Allergy (Verified 07/22/19 18:53) Rash Primary Care Physician: Rohit August MD [Primary Care Provider] - Smoking Status: Never smoker Review of Systems General: Denies: Chills, Fever, Sweats Eyes: Denies: Visual changes - bilaterally, Diplopia ENT: Denies: Rhinorrhea, Sore throat Cardiovascular: Denies: Chest pain, Palpitations Respiratory: Denies: Dyspnea, Cough, Dyspnea on exertion Gastrointestinal: Denies: Abdominal pain, Nausea, Vomiting, Diarrhea, Melena, Hematochezia Genitourinary: Denies: Dysuria, Hematuria, Frequency Musculoskeletal: Denies: Back pain, Extremity Pain Skin: Reports: Abscess. Denies: Rash, Wounds Neurological: Denies: Headache, Weakness, Numbness Physical Exam Vital Signs/Narrative: Vital Signs Temp Pulse Resp BP Pulse Ox 07/22/19 18:52 99.5 F H 115 H 20 H 185/97 H 95 Inital Vital Signs reviewed: Yes General: Well nourished, Well developed, No Acute Distress Head: Normocephalic, Atraumatic Eyes: Perrl, EOMI ENT: Moist mucous membranes, No rhinorrhea Neck: Supple, Nontender Cardiovascular: Regular rate, Regular rhythm, No murmurs Respiratory: No distress, CTA bilaterally, - Abdomen: Soft, Nontender, Nondistended, Normal bowel sounds Back: Nontender, Normal Inspection Extremities: Nontender, No edema Skin: Normal color, No rash, - - There is a fluctuant abscess in the right lateral breast fold. Minimal surrounding erythema. Neurological: Alert, Oriented x3, Cranial nerves II-XII grossly intact, Normal Strength, Normal Sensation Psychological: Normal affect, Normal Mood Diagnostic/Tx/Re-eval - Medical Decision Making Wound was locally anesthetized using 1% lidocaine. Female nursing was with me throughout the examination and procedure. A cruciate incision was made using 11 blade scalpel. Return of a large amount of pus was obtained. Wound was probed for loculations and irrigated. Was packed with about 1 foot of quarter inch iodoform gauze. Wound care discussed with patient. States packing should be removed in 72 hours. Continue her antibiotics. She has follow-up already arranged. I did talk with her about following up with plastic surgery once everything is healed to see if what is probably a sebaceous cyst can be removed. ED Disposition - Plan for ED Patient: Disposition: Home or Assisted Living Diagnosis: Cutaneous abscess of chest wall Instructions: ED Abscess Incision And Drainage Prescriptions: Oxycodone HCl/Acetaminophen [Percocet 5/325] 1 tablet PO Q6H PRN PRN 3 Days #12 tablet PRN Reason: Pain Transmission Status: Sent to [facility] Referrals: Rohit August MD [Primary Care Provider] - Keep Herminia appointment Tayo Williamson MD [STAFF PHYSICIAN] - (for plastic surgery)
[2019-07-22 19:53] VITALS: BP 136/73; PULSE 98; RESP 18; TEMP 37.8; O2SAT 97
[2019-07-22 20:00] VITALS: BP 136/73; PULSE 98; RESP 18; TEMP 37.8; O2SAT 97
== END 2019-07-22 20:48 | disposition home or self-care (01) ==
LOC: ED 20:32
PROVIDERS: Emergency Provider Emergency Medicine; PCP Family Medicine
DX: L02.213 Cutaneous abscess of chest wall (principal); Z88.2 Allergy status to sulfonamides
CPT/HCPCS: 10060; 99282

== ENCOUNTER → 2019-10-11 09:23 | Outpatient (CLI) | payer MEDICARE, OTHER, SELFPAY ==
[2019-10-11 12:51] LABS: Hemoglobin A1c 5.7 % (3.8-5.6)
[2019-10-11 13:01] LABS: ALB/GLOB Ratio 1.1 RATIO (0.9-2.4); AST(SGOT) 30 U/L (15-37); Alanine Aminotransfer ALT/SGPT 26 U/L (13-56); Albumin, Serum 3.6 g/dL (3.2-5.0); Alkaline Phosphatase 111 U/L (45-117); Anion Gap 7 (5-15); BUN 13 mg/dL (7-18); BUN/Creat Ratio 15.6 RATIO (10-20); Calcium,Total 8.8 mg/dL (8.5-10.1); Chloride 106 mmol/L (98-107); Cholesterol 209 mg/dL (200); Creatinine, Serum 0.83 mg/dL (0.55-1.02); EST Glomerular Filtration Rate 72 mL/min (>60); Est Glom Filt Rate - Afr Amer 87 mL/min (>60); Globulin 3.3 g/dL (2.2-4.2); Glucose 115 mg/dL (74-106); High Density Lipoprotein 48 mg/dL; Potassium 4.2 mmol/L (3.5-5.1); Protein, Total 6.9 g/dL (6.4-8.2); Sodium Level 140 mmol/L (136-145); Triglycerides 162 mg/dL; Very Low Density Lipoprotein 32 mg/dL (5-40)
== END ==
PROVIDERS: PCP Family Medicine; Referring Provider Family Medicine; Visit Provider Family Medicine
DX: E11.9 Type 2 diabetes mellitus without complications (principal)
CPT/HCPCS: 36415; 80053; 80061; 83036

== ENCOUNTER → 2020-01-02 11:00 | Outpatient (CLI) | payer MEDICARE, OTHER, SELFPAY ==
[2020-01-02 12:05] LABS: Absolute Neutrophil Count 4.5 X10^3/uL (2.0-7.7); Basophil# 0.03 X10^3/uL; Basophil% 0.5 % (0-1); Eosinophil# 0.14 X10^3/uL; Eosinophils% 2.1 % (0-5); Hematocrit 43.2 % (37-47); Hemoglobin 14.4 g/dL (12.0-15.0); Lymphocyte % 21.4 % (19-41); Mean Corp Hgb Conc 33.3 g/dL (32-36); Mean Corpuscular Hgb 29.3 pg (27.0-32.0); Mean Corpuscular Volume 87.8 fL (81-99); Mean Platelet Vol. 9.7 fl (6.2-12.0); Monocyte% 7.6 % (0-10); NRBC Flagged by Analyzer 0 % (0-5); Neutrophil # 4.45 X10^3/uL (2.7-7.7); Neutrophil % 67.9 % (47-70); Platelet Count 116 K/mm3 (150-450); RBC Distribution Width CV 13.2 % (11.6-14.6); RBC Distribution Width SD 42.3 fl (35.1-43.9); Red Blood Count 4.92 M/mm3 (4.2-5.4); White Blood Count 6.6 K/mm3 (4.4-11.0)
[2020-01-02 12:50] LABS: Anion Gap 9 (5-15); BUN 15 mg/dL (7-18); BUN/Creat Ratio 15.8 RATIO (10-20); Calcium,Total 9.2 mg/dL (8.5-10.1); Chloride 108 mmol/L (98-107); Creatinine, Serum 0.95 mg/dL (0.55-1.02); EST Glomerular Filtration Rate 61 mL/min (>60); Est Glom Filt Rate - Afr Amer 74 mL/min (>60); Glucose 136 mg/dL (74-106); Sodium Level 142 mmol/L (136-145); Thyroid Stim Hormone (TSH) 1.97 uIU/mL (0.358-3.74)
[2020-01-08 16:13] LABS: HPV Reflexed? NOT INDICATED
== END ==
PROVIDERS: PCP Family Medicine; Referring Provider Family Medicine; Visit Provider Registered Nurse
DX: N95.0 Postmenopausal bleeding (principal); I10 Essential (primary) hypertension
CPT/HCPCS: 36415; 80048; 84443; 85025; 88175; G0145

== ENCOUNTER → 2020-01-04 | Outpatient (CLI) | payer MEDICARE, OTHER, SELFPAY ==
--- NOTE | 2020-01-04 15:15 | EMB_PTH ---
PATIENT: SHANTEL FOX LOC: [place] U#:[id number] AGE/SX: 69/F ROOM: RE01/04/[address]: Dr. Tayo Sheehan MD : 1950 BED: DIS: 01/04/2020 SPEC #: [id number] RECD: 01/05/20 06:50 STATUS: BERNADETTE REEyad #: [id number] LOGAN: 01/04/20 15:[address]: Tayo Sheehan DEPT: SURGICAL PATHOLOGY RECD BY: Emilie Davis ENTERED: 01/05/20 06:50 SP TYPE: ENDOM BX/C SHAMA DR: Dr. Rohit August MD Tissues: Endometrium, NOS Procedures: Surgery Specimen Level IV HEADER OPERATION: Endometrial biopsy PRE-OP DIAGNOSIS: Postmenopausal bleeding TISSUE SUBMITTED: Endometrial biopsy MICROSCOPIC DIAGNOSIS Endometrial biopsy: Scant strips of benign endometrial epithelium, consistent with atrophic endometrium. Fragments of benign endocervical epithelium, blood and mucous. See comment. SJ:ivett 01/08/20 COMMENT The specimen predominantly consists of blood and mucous and endocervical epithelium. Correlation with clinical findings and appropriate follow up are necessary. MICROSCOPIC DESCRIPTION Slides are reviewed. GROSS DESCRIPTION Received in fixative is one container labeled with the patient's name and designated EMB. The specimen consists of multiple fragments of hemorrhagic mucoid tissue that in aggregate measure 2.5 x 1 x 0.2 cm. The specimen is totally submitted in one cassette. / JOSHUA:ivett 01/05/20 TC:4 CPT: 17361
== END | disposition home or self-care (01) ==
LOC: LABSPEC 16:41
PROVIDERS: PCP Family Medicine; Visit Provider Obstetrics & Gynecology
DX: N95.0 Postmenopausal bleeding (principal)
CPT/HCPCS: 88305

== ENCOUNTER → 2021-06-25 | Outpatient (CLI) | payer MEDICARE, OTHER, SELFPAY ==
[2021-06-25 12:16] LABS: Absolute Lymphocyte Count 1.65 X10^3/uL (0.83-4.51); Absolute Neutrophil Count 3.1 X10^3/uL (2.0-7.7); Basophil# 0.04 X10^3/uL; Basophil% 0.7 % (0-1); Eosinophil# 0.24 X10^3/uL; Eosinophils% 4.4 % (0-5); Hematocrit 40.2 % (37-47); Hemoglobin 13.7 g/dL (12.0-15.0); Lymphocyte # 1.65 X10^3/ul (0.83-4.51); Lymphocyte % 30.1 % (19-41); Mean Corp Hgb Conc 34.1 g/dL (32-36); Mean Corpuscular Hgb 29.5 pg (27.0-32.0); Mean Corpuscular Volume 86.5 fL (81-99); Mean Platelet Vol. 10.4 fl (6.2-12.0); Monocyte# 0.41 X10^3/uL; Monocyte% 7.5 % (0-10); NRBC Flagged by Analyzer 0 % (0-5); Neutrophil # 3.12 X10^3/uL (2.7-7.7); Neutrophil % 56.9 % (47-70); POSITIVE COUNT YES; Platelet Count 91 K/mm3 (150-450); RBC Distribution Width CV 13.7 % (11.6-14.6); RBC Distribution Width SD 42.1 fl (35.1-43.9); Red Blood Count 4.65 M/mm3 (4.2-5.4); White Blood Count 5.5 K/mm3 (4.4-11.0)
[2021-06-25 12:22] LABS: Differential Indicated SCAN CRITERIA MET
[2021-06-25 12:32] LABS: ALB/GLOB Ratio 0.9 RATIO (0.9-2.4); AST(SGOT) 40 U/L (15-37); Alanine Aminotransfer ALT/SGPT 31 U/L (13-56); Albumin, Serum 3.3 g/dL (3.2-5.0); Alkaline Phosphatase 96 U/L (45-117); Anion Gap 10 (5-15); BUN 11 mg/dL (7-18); Calcium,Total 8.8 mg/dL (8.5-10.1); Chloride 108 mmol/L (98-107); Cholesterol 134 mg/dL (200); Creatinine, Serum 0.92 mg/dL (0.55-1.02); EST Glomerular Filtration Rate 64 mL/min (>60); Est Glom Filt Rate - Afr Amer 77 mL/min (>60); Globulin 3.7 g/dL (2.2-4.2); Glucose 140 mg/dL (74-106); High Density Lipoprotein 47 mg/dL; Potassium 4.2 mmol/L (3.5-5.1); Sodium Level 140 mmol/L (136-145); Triglycerides 163 mg/dL; Very Low Density Lipoprotein 33 mg/dL (5-40)
[2021-06-25 12:49] LABS: Platelet Estimate MOD DEC (ADEQ)
== END | disposition home or self-care (01) ==
LOC: MFPLAB 10:01
PROVIDERS: PCP Family Medicine; Referring Provider Family Medicine; Visit Provider Family Medicine
DX: E11.9 Type 2 diabetes mellitus without complications (principal)
CPT/HCPCS: 36415; 80053; 80061; 85025

== ENCOUNTER → 2021-10-22 | Outpatient (CLI) | payer MEDICARE, OTHER, SELFPAY ==
[2021-10-22 12:11] LABS: Absolute Lymphocyte Count 1.89 X10^3/uL (0.83-4.51); Absolute Neutrophil Count 4.3 X10^3/uL (2.0-7.7); Basophil# 0.07 X10^3/uL; Eosinophil# 0.18 X10^3/uL; Eosinophils% 2.6 % (0-5); Hematocrit 45.1 % (37-47); Hemoglobin 15.7 g/dL (12.0-15.0); Lymphocyte # 1.89 X10^3/ul (0.83-4.51); Mean Corp Hgb Conc 34.8 g/dL (32-36); Mean Corpuscular Hgb 30.1 pg (27.0-32.0); Mean Corpuscular Volume 86.4 fL (81-99); Mean Platelet Vol. 9.2 fl (6.2-12.0); Monocyte% 7.2 % (0-10); NRBC Flagged by Analyzer 0 % (0-5); Neutrophil # 4.33 X10^3/uL (2.7-7.7); Neutrophil % 61.9 % (47-70); Platelet Count 121 K/mm3 (150-450); RBC Distribution Width CV 13.1 % (11.6-14.6); RBC Distribution Width SD 40.8 fl (35.1-43.9); Red Blood Count 5.22 M/mm3 (4.2-5.4)
== END | disposition home or self-care (01) ==
PROVIDERS: PCP Family Medicine; Referring Provider Family Medicine; Visit Provider Family Medicine
DX: D69.6 Thrombocytopenia, unspecified (principal)
CPT/HCPCS: 36415; 85025

== ENCOUNTER 2023-09-29 17:30 | Outpatient (RCR) | payer SELFPAY | END 2023-09-29 23:59 | LOC: NS 17:30 | DX: Z71.3 Dietary counseling and surveillance (principal) ==

== ENCOUNTER 2024-02-09 17:36 | Emergency (ER) | payer MEDICARE, OTHER, SELFPAY ==
[2024-02-09 17:37] VITALS: BP 146/91; PULSE 93; RESP 15; TEMP 36.8; O2SAT 98; BMI 35.2
--- NOTE | 2024-02-09 20:01 | EDS_ITS ---
HPI HPI - Female History of Present Illness Chief Complaint: Vag Bleeding Informant: patient Narrative Narrative: Patient presents with a relatively mild amount of vaginal bleeding that occurred today. She states she noticed it when she went to the bathroom and wiped. He does not appear to have hematuria and no bright red blood per rectum, but actually has not had a bowel movement since her colonoscopy 6 days ago. It was a screening colonoscopy because of a family history of colon cancer, she states she was feeling fine prior to this. No history of any abdominal surgeries in the past. She denies any systemic symptoms occluding those of anemia right now. No abdominal pain. States she has a history of thrombocytopenia for which she follows with Dr. Dailey hematology/oncology. [facility] Medical History (Updated 02/09/24 @ 23:[address] Percy Nur MD) Thrombocytopenia Type 2 diabetes mellitus Home Medications ?Medication ?Instructions ?Recorded ?Last Taken ?Type atenolol 50 mg tablet 50 mg PO DAILY 11/01/18 Unknown History lisinopril 20 mg tablet 20 mg PO DAILY 11/01/18 Unknown History lorazepam 0.5 mg tablet 0.5 mg PO BID PRN PRN Anxiety 11/01/18 Unknown History metformin 500 mg tablet 500 mg PO BID 11/01/18 Unknown History viiunncuvdiv-Ot-udbj-minerals 1 tab PO DAILY 11/01/18 Unknown History medroxyprogesterone 5 mg tablet 5 mg PO DAILY #10 tabs 02/09/24 Unknown Rx Allergy/AdvReac Type Severity Reaction Status Date / Time Sulfa (Sulfonamide Allergy Rash Verified 02/09/24 17:37 Antibiotics) Social History Smoking Status: Never smoker ROS ROS ED Constitutional Constitutional ED: Denies chills or fever(s) Eyes Eyes: Denies change in vision or diplopia ENT ENT ED: Denies rhinorrhea or sore throat Cardiovascular Cardiovascular: Denies chest pain or palpitations Respiratory/Chest Respiratory/Chest: Denies cough or dyspnea Gastrointestinal Gastrointestinal: Denies abdominal pain, diarrhea, nausea or vomiting Genitourinary Genitourinary ED: Denies dysuria or hematuria Musculoskeletal Musculoskeletal: Denies back pain or neck pain Integumentary Denies abscess or rash Neurologic Neurologic: Denies headache(s), paresthesias or weakness Psychiatric Psychiatric: Denies anxiety or suicidal thoughts EXAM Physical Exam Const Vital Signs: 02/09/24 17:37 Temperature 98.2 F Temperature Source Oral Pulse Rate 93 Respiratory Rate 15 Blood Pressure 146/91 H Blood Pressure Mean 109 Pulse Ox 98 Oxygen Delivery Method Room Air Positive well nourished, well developed and obese General Appearance ED: well developed and NAD Nutritional Appearance: obese HEENT Reports moist mucous membranes normocephalic and atraumatic Eyes PERRL and EOMs intact bilaterally Neck full ROM and supple Resp normal respiratory effort and clear to auscultation bilaterally Cardio regular rate, regular rhythm and no murmurs GI non-tender and non-distended Auscultation: normoactive bowel sounds Palpation: soft Back/Spine no CVA tenderness General Back: other FROM Extremity normal to inspection General Extremety ED: Negative for edema, pulses abnormal or tenderness General Extremity: Negative for edema or pulses abnormal Neuro oriented x3, CN's II-XII intact bilaterally and no sensory deficits noted Sensorium / Orientation: awake and alert Motor Exam: strength 5/5 throughout Skin no rashes or lesions noted and no wounds MDM MDM MDM Narrative Medical decision making narrative: I obtained labs because the patient has a history of thrombocytopenia. Her platelet count is 87,000, so I do not think that is the cause of her bleeding. Her hemoglobin is 14, normal. With nursing software development project manager and assistance, I did a bedside pelvic exam on the patient. External exam is normal. On speculum exam, there is a scant amount of blood in the vaginal vault and also at the cervical's, there is no active bleeding. Cervix is normal-appearing and nontender. She is clinically and hemodynamically stable. I called to discuss with [employer] but the on-call numberer and wirer is not immediately available and the patient wants to leave. I reviewed a prior pathology result that she had in 2019 of her endometrium, showing atrophic endometrium. She states at that time she had an ultrasound and a biopsy and a week or so of some type of hormone and it helped. She saw her PCP who has since retired. I am going to refer her to gynecology and put her on 10 days of medroxyprogesterone 5 mg daily and we discussed r easons to return. She is comfortable with that plan. Lab Data Attestation: I reviewed the patient's lab results. Labs: Laboratory Results - last 24 hr 02/09/24 02/09/24 02/09/24 20:00 20:00 20:41 WBC Cancelled 6.3 Corrected WBC Cancelled RBC Cancelled 4.67 Hgb Cancelled 14.0 Hct Cancelled 39.5 MCV Cancelled 84.6 MCH Cancelled 30.0 MCHC Cancelled 35.4 RDW Std Deviation Cancelled 41.2 RDW Coeff of Beatris Cancelled 13.3 Plt Count Cancelled 87 L MPV Cancelled 9.1 Immature Gran % (Auto) Cancelled 0.300 Neut % (Auto) Cancelled 71.1 H Lymph % (Auto) Cancelled 18.2 L [place] % (Auto) Cancelled 7.3 Eos % (Auto) Cancelled 2.1 Baso % (Auto) Cancelled 1.0 Absolute Neuts (auto) Cancelled 4.5 Absolute Lymphs (auto) Cancelled 1.14 Total Counted Cancelled Neutrophils % (Manual) Cancelled Band Neutrophils % Cancelled Lymphocytes % (Manual) Cancelled Monocytes % (Manual) Cancelled Eosinophils % (Manual) Cancelled Basophils % (Manual) Cancelled Metamyelocytes % Cancelled Myelocytes % Cancelled Promyelocytes % Cancelled Blast Cells % Cancelled Plasma Cell % (Manual) Cancelled Other Cells % Cancelled Nucleated RBC % Cancelled 0 Nucleated RBCs/100 WBC Cancelled Differential Comment Cancelled SCANNED Diff Path Review Cancelled Hypersegmented Neuts Cancelled Atypical Lymphocytes Cancelled Reactive Lymphocytes Cancelled Smudge Cells Cancelled Toxic Granulation Cancelled Toxic Vacuolation Cancelled Dohle Bodies Cancelled Frank Rods Cancelled Platelet Estimate Cancelled Plt Morphology Comment Cancelled RBC Morphology Cancelled Cancelled Polychromasia Cancelled Hypochromasia Cancelled Basophilic Stippling Cancelled Anisocytosis Cancelled Microcytosis Cancelled Macrocytosis Cancelled Spherocytes Cancelled Sickle Cells Cancelled Target Cells Cancelled Tear Drop Cells Cancelled Ovalocytes Cancelled Stomatocytes Cancelled [place] Bodies Cancelled [place] Cells Cancelled Bite Cells Cancelled Crenated Cell Cancelled Acanthocytes (Spur) Cancelled Rouleaux Cancelled Schistocytes Cancelled Sodium 138 Potassium 4.4 Chloride 109 H Carbon Dioxide 21.0 Anion Gap 8 BUN 14 Creatinine 0.99 Estim Creat Clear Calc 58.24 Est GFR (MDRD) Af Amer 70 Est GFR (MDRD) Non-Af 58 L BUN/Creatinine Ratio 14.2 Glucose 142 H Calcium 9.7 Urine Color Yellow Urine Clarity Clear Urine pH 6.5 Ur Specific [place] 1.005 Urine Protein Negative Urine Glucose (UA) Normal Urine Ketones Negative Urine Occult Blood 250 H Urine Nitrite Negative Urine Bilirubin Negative Urine Urobilinogen Normal Ur Leukocyte Esterase 25 H Urine RBC 0-5 SEEN Urine WBC 0-5 SEEN Ur Squamous Epith Cells 0 SEEN Urine Bacteria 0 SEEN Urine Mucus 0 SEEN Discharge Plan Triage Chief Complaint: Vag Bleeding ED Provider: Percy Nur Dx/Rx/DC Orders Clinical Impression: Abnormal vaginal bleeding in postmenopausal patient Instructions: ED Dysfunctional Uterine Bleeding Prescriptions: New medroxyprogesterone 5 mg tablet 5 mg PO DAILY Qty: 10 0RF No Action metformin 500 MG tablet 500 mg PO BID lisinopril 20 MG tablet 20 mg PO DAILY lorazepam 0.5 MG tablet 0.5 mg PO BID PRN PRN (Reason: Anxiety) atenolol 50 MG tablet 50 mg PO DAILY ohvrlqywsueb-Zg-fcrt-minerals 1 EACH tablet 1 tab PO DAILY Primary Care Provider: Ambar Duke Referrals: Irasema Smith MD [Med Staff - Active Staff] - As soon as possible Print Language: Salvadorean Disposition Disposition: Home, Self Care
[2024-02-09 20:12] LABS: Bacteria 0 SEEN /hpf (None Seen); Mucous, Urine 0 SEEN /hpf (<or=2+); Squamous Epithelial Cells - UA 0 SEEN /hpf (5-10)
[2024-02-09 20:13] LABS: Color, Urine Yellow (Yellow); Glucose, Dipstick Normal (Normal); Ketone-Dipstick Negative (Negative); Leukocyte Esterase-Dipstick 25 /ul (Negative); Nitrite-Dipstick Negative (Negative); Occult Blood-Urine 250 /ul (Negative); Protein-Dipstick Negative (Negative); Specific Gravity, Urine 1.005 (1.002-1.030); Urine Bilirubin Dipstick Negative (Negative); Urine Clarity Clear (Clear); Urine Urobilinogen Normal (Normal); Urine pH 6.5 (5.0 - 8.0)
[2024-02-09 20:30] LABS: Red Blood Cells-Urine 0-5 SEEN /hpf (0-5); White Blood Cells 0-5 SEEN /hpf (0-5)
[2024-02-09 20:46] LABS: Anion Gap 8 (5-15); BUN 14 mg/dL (7-18); BUN/Creat Ratio 14.2 RATIO (10-20); Calcium,Total 9.7 mg/dL (8.5-10.1); Chloride 109 mmol/L (98-107); Creatinine, Serum 0.99 mg/dL (0.55-1.02); EST Glomerular Filtration Rate 58 mL/min (>60); Est Glom Filt Rate - Afr Amer 70 mL/min (>60); Estimated Creatinine Clearance 58.24 ml/min; Glucose 142 mg/dL (74-106); Potassium 4.4 mmol/L (3.5-5.1); Sodium Level 138 mmol/L (136-145)
[2024-02-09 20:53] LABS: Absolute Lymphocyte Count 1.14 X10^3/uL (0.83-4.51); Absolute Neutrophil Count 4.5 X10^3/uL (2.0-7.7); Basophil# 0.06 X10^3/uL; Eosinophil# 0.13 X10^3/uL; Eosinophils% 2.1 % (0-5); Hematocrit 39.5 % (37-47); Lymphocyte # 1.14 X10^3/ul (0.83-4.51); Lymphocyte % 18.2 % (19-41); Mean Corp Hgb Conc 35.4 g/dL (32-36); Mean Corpuscular Volume 84.6 fL (81-99); Mean Platelet Vol. 9.1 fl (6.2-12.0); Monocyte# 0.46 X10^3/uL; Monocyte% 7.3 % (0-10); NRBC Flagged by Analyzer 0 % (0-5); Neutrophil # 4.47 X10^3/uL (2.7-7.7); Neutrophil % 71.1 % (47-70); POSITIVE COUNT YES; Platelet Count 87 K/mm3 (150-450); RBC Distribution Width CV 13.3 % (11.6-14.6); RBC Distribution Width SD 41.2 fl (35.1-43.9); Red Blood Count 4.67 M/mm3 (4.2-5.4); White Blood Count 6.3 K/mm3 (4.4-11.0)
[2024-02-09 20:55] LABS: Differential Indicated SCAN CRITERIA MET
[2024-02-09 21:25] LABS: Differential Comment SCANNED
[2024-02-09 23:30] VITALS: BP 138/82; PULSE 85; RESP 16; TEMP 36.6; O2SAT 98
== END 2024-02-09 23:31 | disposition home or self-care (01) ==
PROVIDERS: Emergency Provider Emergency Medicine; PCP Family Medicine; Visit Provider Emergency Medicine
DX: N95.0 Postmenopausal bleeding (principal); E11.9 Type 2 diabetes mellitus without complications; D69.6 Thrombocytopenia, unspecified; E66.9 Obesity, unspecified; Z68.35 Body mass index [BMI] 35.0-35.9, adult; Z79.84 Long term (current) use of oral hypoglycemic drugs
CPT/HCPCS: 36415; 80048; 81001; 85025; 99282; A4216

== ENCOUNTER 2024-05-11 07:23 | Day surgery (SDC) | payer MEDICARE, OTHER, SELFPAY ==
--- NOTE | 2024-05-02 12:26 | HP.PCM_ITS ---
History and Physical Date of Admission: 05/11/24 HPI: The patient is a 73 year old female presenting for pre-operative visit. She is scheduled for Hysteroscopy D&C and polyp/mass resection, for PMB and endometrial mass on 05/11/24. Procedure discussed along with risks, benefits and complications. Other alternatives discussed for management. Consent form signed? Yes. ? ? PAST MEDICAL HISTORY PAST MEDICAL HISTORYDiagnosisDate?Diabetes mellitus (HCC)??Hypertensive kidney disease, benign??Unspecified sleep apnea? ? ? PAST SURGICAL HISTORY PAST SURGICAL HISTORYProcedureLateralityDate?BX BREAST PERC VACUUM/ROTN?07/04/2007?Right upper outer - Benign?CARPAL TUNNEL RIGHT WRIST?03/01/2006?REMV CATARACT EXTRACAP,INSERT LENSLeft??REMV CATARACT EXTRACAP,INSERT LENSRight??TOTAL KNEE [id number]/10/2019?XCAPSL CTRC RMVL INSJ IO LENS PROSTH W/O ECP?03/01/2006 ? ? ? CURRENT MEDICATIONS Current Outpatient MedicationsMedicationSigDispenseRefill?amitriptyline (ELAVIL) 10 mg tabletTake 10 mg by mouth daily at bedtime.???ascorbic acid, vitamin C, (VITAMIN C) 500 mg tabletTake 500 mg by mouth once daily.???lisinopril (ZESTRIL, PRINIVIL) 20 mg tabletTake 20 mg by mouth once daily.???multivitamins(DAILY VITAMIN TAB)Take one(1) tablet daily.?0?calcium carbonate/vitamin d3(CALCIUM 600 + D 600 MG-125 UNIT TAB)Take 1 tablet by mouth once daily.?0?norethindrone (AYGESTIN) 5 mg tabletTake 1 tablet by mouth as directed. take one tablet daily up to TID to slow, stop vaginal bleeding (Patient not taking: Reported on 05/02/2024)30 tablet1?No current facility-administered medications for this visit. ? ? ALLERGIES: Sulfa (Sulfonamide Antibiotics) and Sulphated Oil ? PERSONAL HISTORY: SOCIAL HISTORY Social History?Tobacco Use?Smoking status:Never?Smokeless tobacco:NeverVaping Use?Vaping status:Never UsedSubstance Use Topics?Alcohol use:No?Drug use:No ? FAMILY HISTORY: FAMILY HISTORY FAMILY HISTORY ProblemRelationAge of Onset?HypertensionMother??Colon CancerMother??HeartFather??CancerFather?? prosate?No Known ProblemsSister??HeartBrother??Prostate CancerBrother??No Known ProblemsBrother??StrokeMaternal Grandmother??HeartMaternal Grandfather??No Known ProblemsPaternal Grandmother??CancerPaternal Grandfather??Alcohol abusePaternal Grandfather? ? ? REVIEW OF SYMPTOMS: GENERAL: denies fevers or chills ENDOCRINOLOGY: has not been on steroids Cardiology : denies palpitations or chest pain Respiratory: denies SOB or cough Hematology: denies history of prolonged bleeding or easy bruising or VTE Allergy: Denies history of personal or family history of allergy to anesthesia ? PHYSICAL EXAMINATION: ? VITALS: Blood pressure 148/84, pulse 100, resp. rate 16, height 167.6 cm (5' 6), weight 102.4 kg (225 lb 12.8 oz). ? GENERAL: The patient is well nourished, well hydrated in no acute distress. , The patient is oriented to time, place, and person. NECK: Supple. No lynphadenopathy, normal thyroid, no thyromegaly. LUNGS: Clear to auscultation bilaterally. no wheezes, rhonchi or rales HEART: Regular rate and rhythm, Normal heart sounds, and No murmurs or gallops ? EMB- predominantly blood, rare superficial benign epithelial cells ? PELVIC US 02/23/25 Uterus: -Size: 6.4 x 3.7 x 5 cm -Orientation: Retroverted -Endometrial echo complex: Evaluation of the endometrium was adequate. The endometrium is thick and heterogeneous. ?Complex fluid within it measures up to 1.1 cm. ?There appears to be complex solid vascular material within it. ?The endometrial echo complex measured 0.5 cm. -Cervix: Unremarkable. -Adenomyosis assessment: There are no sonographic findings of adenomyosis. -Fibroids: Posterior uterine body subserosal/intramural fibroids of 1.9 and 1.4 cm respectively Uterine artery calcifications are seen The right and left ovary are not seen with the transabdominal or endovaginal probe Free Fluid: No abnormal free fluid is present. ?No evidence of pathologic adnexal mass ? IMPRESSION: PMB, endometrial mass ? PLAN: The risks/benefits/alternatives and personal involved for the planned hy steroscopy D&C with polyp/endometrial mass resection were reviewed with the patient. Her questions were answered to her satisfaction and she desires to proceed. Consent was signed. I reviewed with her postop instructions and expectations. ? ? I have reviewed and updated past medical and surgical history, medications and allergies Assessment & Plan Assessment/Plan (1) PMB (postmenopausal bleeding): (2) Endometrial mass:
[2024-05-11] VITALS (8 sets, daily range): BP systolic 118–144; BP diastolic 65–82; PULSE 84–94; RESP 16–18; TEMP 36.4–36.8; O2SAT 95–98; BMI 36.7
[2024-05-11] MEDS: Acetaminophen 500 MG Tablet 1000 MG PO (08:09)
[2024-05-11 08:10] LABS: Hematocrit 40.1 % (37-47); Hemoglobin 13.9 g/dL (12.0-15.0); Mean Corp Hgb Conc 34.7 g/dL (32-36); Mean Corpuscular Hgb 29.3 pg (27.0-32.0); Mean Corpuscular Volume 84.4 fL (81-99); Mean Platelet Vol. 9.1 fl (6.2-12.0); Platelet Count 104 K/mm3 (150-450); RBC Distribution Width CV 13.5 % (11.6-14.6); RBC Distribution Width SD 41.7 fl (35.1-43.9); Red Blood Count 4.75 M/mm3 (4.2-5.4); White Blood Count 6.4 K/mm3 (4.4-11.0)
[2024-05-11 08:34] LABS: Bedside Glucose 145 mg/dL (74-106)
[2024-05-11 08:42] LABS: Anion Gap 15 (5-15); BUN 13 mg/dL (4-19); BUN/Creat Ratio 14.4 RATIO (10-20); Calcium,Total 9.3 mg/dL (7.6-11.0); Carbon Dioxide 19.7 mmol/L (21.0-32.0); Chloride 103 mmol/L (98-108); Creatinine, Serum 0.93 mg/dL (0.70-1.20); EST Glomerular Filtration Rate 64 (>60); Estimated Creatinine Clearance 63.42 ml/min (50-250); Glucose 150 mg/dL (70-99); Potassium 3.9 mmol/L (3.3-5.1); Sodium Level 137 mmol/L (133-145)
--- NOTE | 2024-05-11 09:02 | PRE.ANES_ITS ---
ASA Classification* ASA Classification ASA Classification: 2 (HTN, borderline DM, FIORDALIZA on CPAP.) Assessment & Plan Anesthesia* Anesthesia Assessment Anesthesia Assessment: Discussed sedation and/or anesthesia options, risks, benefits, and alternatives with patient/parents/legal guardian/POA. Questions invited. The patient/parents/legal guardian/POA seems to understand and agrees to proceed with anesthesia plan. Reviewed the physical assessment, medical history, allergy history and patient home medications list prior to surgery/procedure/anesthetic and documented any changes. Performed airway and anesthesia risk assessments. Anesthesia Type Anesthesia Type: MAC History Source History Obtained from:: Patient and Chart Anesthesia Focused Assessment* Temperature: 97.6 F Pulse Rate: 94 Blood Pressure: 144/82 Respiratory Rate: 18 Pulse Ox: 98 Airway Assessment Mouth opens: >3 cm Mallampati Score: II Teeth Condition: Intact and Missing (some) Neck Range of motion (ROM): Full ROM Focused Labs Anesthesia Preop lab: CBC WBC 6.4 K/mm3 (4.4-11.0) 05/11/24 08:00 05/11/24 RBC 4.75 M/mm3 (4.2-5.4) 05/11/24 08:00 05/11/24 Hgb 13.9 g/dL (12.0-15.0) 05/11/24 08:00 05/11/24 Hct 40.1 % (37-47) 05/11/24 08:00 05/11/24 Plt Count 104 K/mm3 (150-450) L 05/11/24 08:00 05/11/24 CHEMISTRY Potassium 3.9 mmol/L (3.3-5.1) 05/11/24 08:00 05/11/24 Sodium 137 mmol/L (133-145) 05/11/24 08:00 05/11/24 BUN 13 mg/dL (4-19) 05/11/24 08:00 05/11/24 Creatinine 0.93 mg/dL (0.70-1.20) 05/11/24 08:00 05/11/24 Glucose 150 mg/dL (70-99) H 05/11/24 08:00 05/11/24 POC Glucose 145 mg/dL (74-106) H 05/11/24 08:06 05/11/24 TSH 1.97 uIU/mL (0.358-3.74) 01/02/20 11:08 COAG Pre-Assessment Diagnosis/Proposed Procedure Planned Operative Procedure(s): Hysteroscopy,D&C Symphion, polyp resection Anesthesia History Anesthesia History - event services manager: Anesthesia History - event services manager Hx Hospitalization No 05/02/24 14:58 Any Problems With Anesthesia No 05/02/24 14:58 Cholinesterase deficiency No 05/02/24 14:58 You/Your Family Experience No 05/02/24 14:58 fever (hyperthermia) with Relationship Recent Exposure to Contagious No 05/11/24 08:01 Disease Does patient have nerve No 05/02/24 14:58 stimulator Patient instructed to have device shut off --Does patient have Pacemaker No 05/11/24 08:01 or ICD? When Was Last Pacemaker Check QUESTION #4 FULL TEXT: You/Your Family Experience fever (hyperthermia) with Anesthesia Last Oral Intake Last Oral intake: Last Oral Intake NPO since 00:00 05/11/24 08:01 Meds taken in AM with sips of No 05/11/24 08:01 water? Meds patient instructed to take am of surgery PONV PONV - event services manager: PONV - event services manager Female Yes 05/02/24 14:58 HX of Motion Sickness No 05/02/24 14:58 HX of N/V After Surgery No 05/02/24 14:58 Non-Smoker Yes 05/02/24 14:58 Duration of Surgery greater No 05/02/24 14:58 than 60 minutes Number of Risk Factors 2 05/02/24 14:58 PONV Score Moderate Risk 05/02/24 14:58 Height & Weight Height & Weight: Anesthesia: Height & Weight Height 5 ft 6 in 05/11/24 08:01 Weight: 103.2 kg 05/11/24 08:01 Body Mass Index (BMI) 36.7 05/11/24 08:01 Respiratory Assessment Respiratory Assessment - event services manager: Respiratory Tract Infection Hx - event services manager Hx Respiratory Tract Infection No 05/02/24 14:58 STOP Sleep Apnea STOP Sleep Apnea - event services manager: STOP Sleep Apnea - event services manager Hx Hypertension Yes: CONTROLLED WITH MED 05/02/24 14:58 Hx Sleep Apnea Yes 05/02/24 14:58 CPAP Yes 05/02/24 14:58 BIPAP No 05/02/24 14:58 Do you snore loudly (louder than talking or can be heard Do you often feel tired/ fatigued/ sleepy during daytime? Has anyone observed you stop breathing during sleep? STOP Results Positive 05/02/24 14:58 QUESTION #5 FULL TEXT : Do you snore loudly (louder than talking or can be heard through closed doors)? Tobacco Use History Tobacco Use History - event services manager: Tobacco Use History - event services manager Tobacco Use Smoking Status Never smoker 05/02/24 14:58 Hx Tobacco Use No 05/02/24 14:58 Years Smoking Packs Smoked per Day Smoking Cessation Date was within the last 15 years Hx Smoking Cessation Date Hx Smoking Cessation Counseling Hematologic Medial History Hematologic Hx - event services manager: Hematologic Medical Hx - percussion instrument tuner Hx of Blood Transfusion No 05/02/24 14:58 Hx of Transfusion in last 3 No 05/02/24 14:58 Months Date of Last Transfusion (if within last 3 months) Ever experience any problems No 05/02/24 14:58 with transfusion(s)? Specify any problems Hx of Preganancy in last 3 N/A 05/02/24 14:58 Months Nurse Filling Out Transfusion NBUCHER 05/02/24 14:58 & Questions: Date: 05/02/24 05/02/24 14:58 Time: 14:59 05/02/24 14:58 Patient unable to answer at this time (ie. confused, unrespo /Reproduction History /Reproductive History - event services manager: /Reproductive Hx- event services manager Hx Now Gestational Age (in weeks): EDC: Hx Hx Para Hx Section SAB No 05/02/24 14:58 Active Medications Active Medications: Current Medications Generic Name Dose Route Start Last Admin Trade Name Freq PRN Reason Stop Dose Admin Acetaminophen 1,000 mg 05/11/24 09:20 05/11/24 08:09 Acetaminophen 500 Mg Tablet PO 05/11/24 09:21 1,000 mg PREOP ONE Administration PFSH Medical History Post-menopausal Anxiety Arthritis Fatty liver Dietary restriction Non-smoker CPAP (continuous positive airway pressure) dependence Leg cramps Hypertension Thrombocytopenia Type 2 diabetes mellitus Home Medications ?Medication ?Instructions ?Recorded ?Last Taken ?Type lisinopril 20 mg tablet 20 mg PO DAILY 11/01/18 Unkn own History amitriptyline 10 mg tablet 10 - 20 mg PO QHS 03/16/24 Unknown History ascorbic acid (vitamin C) 500 mg 500 mg PO DAILY 03/16 Unknown History tablet (C-500) dlxggjxs-npml-dcicw acid 240 1 tab PO DAILY 03/16/24 U nknown History mcg-vit K 120 akl-pnhitg-llon 293 tablet (Alive Women's 50 Plus (fruit-veg blend)) norethindrone acetate 5 mg tablet 5 mg PO DAILY PRN va ginal bleeding 03/16/24 Unknown History elderberry fruit 200 mg capsule 200 mg PO DAILY Unknown History zinc 10 mg tablet 10 mg PO DAILY 05/02/24 Unkn own History Allergy/AdvReac Type Severity Reaction Status Date / Time Sulfa (Sulfonamide Allergy Rash Verified 05/11/24 07:51 Antibiotics) Surgical History History of carpal tunnel surgery of right wrist History of carpal tunnel surgery of left wrist Hx of colonoscopy Hx of total knee arthroplasty Hx of eye surgery Hx of eye surgery Hx of right cataract extraction Hx of left cataract extraction Social History Smoking Status: Never smoker Review of Systems (Anesthesia) ROS Narrative System reviewed and no additional complaints, except as documented. Physical Exam Const alert, oriented x3 and average body habitus Resp normal respiratory effort, normal air movement and clear to auscultation bilaterally Cardio regular rate, regular rhythm, no murmurs and diaphoretic
--- NOTE | 2024-05-11 09:20 | EMB_PTH ---
PATIENT: SHANTEL FOX LOC: [facility] [place] U#:[id number] AGE/SX: 73/F ROOM: RE05/11/[address]: Dr. Melania Mahoney MD : 1950 BED: DIS: 05/11/2024 SPEC #: [id number] RECD: 05/11/24 13:50 STATUS: BERNADETTE MAGALIE #: [id number] LOGAN: 05/11/24 09:[address]: Melania Mahoney DEPT: SURGICAL PATHOLOGY RECD BY: Joce Thurman ENTERED: 05/11/24 13:50 SP TYPE: ENDOM BX/C OTHR DR: Ambar Duke MD Tissues: A - Endometrium, NOS Procedures: Surgery Specimen Level IV HEADER OPERATION: Hysteroscopy, D&C, fibroid resection PRE-OP DIAGNOSIS: Post menopausal bleeding, endometrial mass TISSUE SUBMITTED: A- Endometrial curettings and mass MICROSCOPIC DIAGNOSIS A. ENDOMETRIUM, CURETTAGE: * Endometrium with focal atypical hyperplasia - see Comment. * Fragments of smooth muscle suggestive of leiomyoma. COMMENT Selected slides/images were reviewed in intradepartmental consultation by Dr Carole Mike (EMBEDDED SOFTWARE ENGINEER pathology division, [facility]). MICROSCOPIC DESCRIPTION Slides are reviewed. GROSS DESCRIPTION A. Received in fixative is one container labeled with the patient's name and designated Endometrial curettings and mass. The specimen consists of multiple fragments of light felix-white soft tissue measuring 3 x 2 x 0.5 cm in aggregate. TE2 EH/mr 05/12/2024 CPT:09306
[2024-05-11] MEDS: Lidocaine 1% /Epi 1:100 (20ml) 20 ML Vial (10:01)
--- NOTE | 2024-05-11 10:31 | DCINST_ITS ---
Discharge Instructions Diet Discharge Diet: No restrictions DC O2, CPAP, BIPAP needs Home O2 Discharge instructions: No Dressing / Incision May resume sexual activity in: 2 weeks Lifting Restrictions: none Dressing / Incision Call your doctor if your incision/area has: Sudden Increased Bleeding and Foul Smelling Discharge Call your doctor if you observe: Fever of 101 or Higher and Using more than 1 pad per hour (for 2 hrs in a row) Follow Up Care Please Follow Up With: Melania Mahoney MD When: 2-4 weeks or as needed. Call [phone] or send a [employer] message to make an appointment or with any concerns. Test Results: Test results from this visit will be discussed in further detail at your follow- up appointment, if applicable. Discharge Plan Admission Primary Reason for Your Visit: Hysteroscopy D&C Attending Provider: Melania Mahoney Primary Care Provider: Ambar Duke Instructions Print Language: Maltese Discharge Orders/Prescriptions Prescriptions: No Action lisinopril 20 MG tablet 20 mg PO DAILY amitriptyline 10 mg tablet 10 - 20 mg PO QHS norethindrone acetate 5 mg tablet 5 mg PO DAILY PRN (Reason: vaginal bleeding ) Alive Women's 50 Plus (blend) 240-120-300 mcg tablet 1 tab PO DAILY ascorbic acid (vitamin C) [C-500] 500 mg tablet 500 mg PO DAILY elderberry fruit 200 mg capsule 200 mg PO DAILY zinc 10 mg tablet 10 mg PO DAILY Referrals / Follow Up: Ambar Duke MD [Primary Care Provider] - Disposition Disposition (needs filled in before D/C Order can be placed): Home, Self Care
--- NOTE | 2024-05-11 10:32 | PCM.OPRPT ---
Problems Associated Problem List Diagnoses (1) Endometrial mass: (2) PMB (postmenopausal bleeding): Operative Report (Standard) Operative Information Date of Procedure: 05/11/24 Pre-Operative Diagnosis: PMB, endometrial mass Post-Operative Diagnosis: same+ submucosal uterine fibroid Surgery/Procedure Performed: Hysteroscopy D& C with fibroid resection revenue accounting manager: No Type of Anesthesia: MAC/Supplemental/Local RN Documented Start/Stop Times: Operation Date: 05/11/24 09:20 Case Time Into Pre-Op 05/11/24 07:31 Out of Pre-Op 05/11/24 09:39 Anesthesia Start 05/11/24 09:42 Into Room 05/11/24 09:42 Procedure Start 05/11/24 10:01 Procedure End 05/11/24 10:24 Anesthesia End 05/11/24 10:30 Out of Room 05/11/24 10:30 Procedure Start Time: 10:01 Procedure Stop Time: 10:24 Select all DRAINS/GRAFTS/IMPLANTS that apply: None Special Medications: none Estimated Blood Loss: 10 Fluids Replaced: 0 Specimen collected: Yes Description of specimen(s) removed: endometrial curettings and fibroid Description of surgery: The patient was taken to the OR where she was prepped and draped in dorsal lithotomy position. The weighted speculum was placed in the vagina and the anterior lip of the cervix was grasped with a single-tooth tenaculum. A paracervical block was administered with [1% lidocaine with 1-100,000 epinephrine solution]. The cervix was dilated serially with Hegar dilators. The Symphion hysteroscope was placed into the uterine cavity and the above findings were noted. Bilateral tubal ostia [were] identified. The symphion resection device was inserted and used to do a visual D&C of the endometrium and resect the left upper fundal submucosal fibroid. The instruments were removed from the vagina. The specimen was handed off and sent to pathology. All sponge and needle counts were correct. Vaginal sweep was performed by me. The patient was awakened and taken to the recovery room in stable condition. Calculated hysteroscopic fluid deficit is 550 cc of normal saline Surgical Findings: Normal cervix and vagina, thin atrophic endometrium, both tubal ostia were identified, fundal anterior Marcelo submucosal fibroid Complications Complications: No Admit VTE Documentation VTE Present on Admission: No VTE Mechan Device Prophylaxis: [facility] Pharm Prophylaxis ordered?: No
--- NOTE | 2024-05-11 10:45 | PCM.POST.ANE ---
Anesthesia: Postop Eval I Current Vital Signs Temperature: 98.3 F Pulse Rate: 84 Blood Pressure: 133/65 Respiratory Rate: 16 Pulse Ox: 96 Oxygen Delivery Method: Room Air Assessment Airway patent: Yes Spontaneous unlabored respirations: Yes Mental status: Awake and Calm nausea: No Vomiting: No Anesthesia Complication: No Fluid Hydration Crystalloid volume administer (ml): 10 Total IV fluid infused: 10 Progress Note Anesthesia document: Postop Eval 1 completed: Yes
--- NOTE | 2024-05-11 12:47 | POSTOPAN2_ITS ---
Anesthesia Postop Eval I Sum Postop Eval Completion status Anesthesia document: Postop Eval 1 completed: Yes Anesthesia Postop Eval I Summary Anesthesia Postop Eval I Summary: Anesthesia Postop Eval I: Assessment Summary Airway patent Yes 05/11/24 12:41 REAL ESTATE ACCOUNT EXECUTIVE.GDOTT Spontaneous unlabored Yes 05/11/24 12:41 REAL ESTATE ACCOUNT EXECUTIVE.GDOTT respirations Mental status Awake,Calm 05/11/24 12:41 REAL ESTATE ACCOUNT EXECUTIVE.GDOTT nausea No 05/11/24 12:41 REAL ESTATE ACCOUNT EXECUTIVE.GDOTT Vomiting No 05/11/24 12:41 REAL ESTATE ACCOUNT EXECUTIVE.GDOTT Anesthesia Postop Eval I: Fluid Summary Crystalloid volume administer 10 05/11/24 12:41 REAL ESTATE ACCOUNT EXECUTIVE.GDOTT (ml) Colloids volume administered ( ml) Blood Product volume administered (ml) Total IV fluid infused 10 05/11/24 12:41 REAL ESTATE ACCOUNT EXECUTIVE.GDOTT Anesthesia Postop Eval I: Summary Notes Anesthesia Complication No 05/11/24 12:41 REAL ESTATE ACCOUNT EXECUTIVE.GDOTT Anesthesia Complication Comment: Post-operative progress note Anesthesia: Postop Eval II Evaluation Mental status: Awake Pain Level: 0 nausea: No Vomiting: No Complications Anesthesia Complication: No
--- NOTE | 2024-05-11 12:47 | PCM.POSTANE2 ---
Anesthesia Postop Eval I Sum Postop Eval Completion status Anesthesia document: Postop Eval 1 completed: Yes Anesthesia Postop Eval I Summary Anesthesia Postop Eval I Summary: Anesthesia Postop Eval I: Assessment Summary Airway patent Yes 05/11/24 12:41 DOOR GLASS INSTALLER.GDOTT Spontaneous unlabored Yes 05/11/24 12:41 DOOR GLASS INSTALLER.GDOTT respirations Mental status Awake,Calm 05/11/24 12:41 DOOR GLASS INSTALLER.GDOTT nausea No 05/11/24 12:41 DOOR GLASS INSTALLER.GDOTT Vomiting No 05/11/24 12:41 DOOR GLASS INSTALLER.GDOTT Anesthesia Postop Eval I: Fluid Summary Crystalloid volume administer 10 05/11/24 12:41 DOOR GLASS INSTALLER.GDOTT (ml) Colloids volume administered ( ml) Blood Product volume administered (ml) Total IV fluid infused 10 05/11/24 12:41 DOOR GLASS INSTALLER.GDOTT Anesthesia Postop Eval I: Summary Notes Anesthesia Complication No 05/11/24 12:41 DOOR GLASS INSTALLER.GDOTT Anesthesia Complication Comment: Post-operative progress note Anesthesia: Postop Eval II Evaluation Mental status: Awake Pain Level: 0 nausea: No Vomiting: No Complications Anesthesia Complication: No
== END 2024-05-11 11:20 | disposition home or self-care (01) ==
LOC: SDC 07:26 → AC 07:27
PROVIDERS: PCP Family Medicine; Referring Provider Obstetrics & Gynecology; Visit Provider Obstetrics & Gynecology
PROC: 0UB98ZZ Excision of Uterus, Via Natural or Artificial Opening Endoscopic (ICD-10-PCS; CPT 58558; principal; 2024-05-11 09:05)
DX: N95.0 Postmenopausal bleeding (principal); D25.0 Submucous leiomyoma of uterus; I10 Essential (primary) hypertension; Z79.899 Other long term (current) drug therapy
CPT/HCPCS: 58558; 00952; 80048; 82962; 85027; 88305; A4216; J2405

== ENCOUNTER → 2024-07-04 | Outpatient (CLI) | payer MEDICARE, OTHER, SELFPAY ==
[2024-07-04 13:09] LABS: Hemoglobin A1c 5.9 % (<=5.6)
== END | disposition home or self-care (01) ==
LOC: MFPLAB 10:28
PROVIDERS: PCP Family Medicine; Referring Provider Family Medicine; Visit Provider Family Medicine
DX: E11.9 Type 2 diabetes mellitus without complications (principal)
CPT/HCPCS: 36415; 83036

== ENCOUNTER 2024-07-20 10:32 | Observation (INO) | payer MEDICARE, OTHER, SELFPAY ==
--- NOTE | 2024-07-12 10:00 | HP.PCM_ITS ---
History and Physical Date of Admission: 07/20/24 HPI: The patient is a 73 year old female presenting for pre-operative visit. She is scheduled for LAVH with BSO and possible cystoscopy, for endometrial hyperplasia with atypia on 07/20/24. Procedure discussed along with risks, benefits and complications. Other alternatives discussed for management. Consent form signed? Yes. ? ? PAST MEDICAL HISTORY PAST MEDICAL HISTORYDiagnosisDate?Diabetes mellitus (HCC)??Hypertensive kidney disease, benign??Unspecified sleep apnea? ? ? PAST SURGICAL HISTORY PAST SURGICAL HISTORYProcedureLateralityDate?BX BREAST PERC VACUUM/ROTN?07/04/2007?Right upper outer - Benign?CARPAL TUNNEL RIGHT WRIST?03/01/2006?HYSTEROSCOPY REMOVAL LEIOMYOMATA?05/11/2024?D&C w/ fibroid resection?REMV CATARACT EXTRACAP,INSERT LENSLeft??REMV CATARACT EXTRACAP,INSERT LENSRight??TOTAL KNEE [id number]/10/2019?XCAPSL CTRC RMVL INSJ IO LENS PROSTH W/O ECP?03/01/2006 ? ? ? CURRENT MEDICATIONS Current Outpatient MedicationsMedicationSigDispenseRefill?amitriptyline (ELAVIL) 10 mg tabletTake 10 mg by mouth daily at bedtime.???ascorbic acid, vitamin C, (VITAMIN C) 500 mg tabletTake 500 mg by mouth once daily.???lisinopril (ZESTRIL, PRINIVIL) 20 mg tabletTake 20 mg by mouth once daily.???multivitamins(DAILY VITAMIN TAB)Take one(1) tablet daily.?0?calcium carbonate/vitamin d3(CALCIUM 600 + D 600 MG-125 UNIT TAB)Take 1 tablet by mouth once daily.?0?No current facility-administered medications for this visit. ? ? ALLERGIES: Sulfa (Sulfonamide Antibiotics) and Sulphated Oil ? PERSONAL HISTORY: SOCIAL HISTORY Social History?Tobacco Use?Smoking status:Never?Smokeless tobacco:NeverVaping Use?Vaping status:Never UsedSubstance Use Topics?Alcohol use:No?Drug use:No ? FAMILY HISTORY: FAMILY HISTORY FAMILY HISTORY ProblemRelationAge of Onset?HypertensionMother??Colon Can cerMother??HeartFather??CancerFather?? prosate?No Known ProblemsSister??HeartBrother??Prostate CancerBrother??No Known ProblemsBrother??StrokeMaternal Grandmother??HeartMaternal Grandfather??No Known ProblemsPaternal Grandmother??CancerPaternal Grandfather??Alcohol abusePaternal Grandfather? ? ? REVIEW OF SYMPTOMS: GENERAL: denies fevers or chills ENDOCRINOLOGY: has not been on steroids Cardiology : denies palpitations or chest pain Respiratory: denies SOB or cough Hematology: denies history of prolonged bleeding or easy bruising or VTE Allergy: Denies history of personal or family history of allergy to anesthesia ? PHYSICAL EXAMINATION: ? VITALS: Blood pressure 146/84, pulse 86, height 167.6 cm (5' 6), weight 103.4 kg (228 lb), SpO2 99%. ? GENERAL: The patient is well nourished, well hydrated in no acute distress. , The patient is oriented to time, place, and person. NECK: Supple. No lynphadenopathy, normal thyroid, no thyromegaly. LUNGS: Clear to auscultation bilaterally. no wheezes, rhonchi or rales HEART: Regular rate and rhythm, Normal heart sounds, and No murmurs or gallops ? IMPRESSION: endometrial hyperplasia with atypia, PMB ? PLAN: The risks/benefits/alternatives and personal involved for the planned LAVH with bilateral salpingectomy with possible cystopscopy were reviewed with the patient. Her questions were answered to her satisfaction and she desires to proceed. Consent was signed. I reviewed with her postop instructions and expectations. ? ? I have reviewed and updated past medical and surgical history, medications and allergies Assessment & Plan Assessment/Plan (1) Endometrial hyperplasia with atypia: PLAN: Plan HPI: The patient is a 73 year old female presenting for pre-operative visit. She is scheduled for LAVH with BSO and possible cystoscopy, for endometrial hyperplasia with atypia on 07/20/24. Procedure discussed along with risks, benefits and complications. Other alternatives discussed for management. Consent form signed? Yes. ? ? PAST MEDICAL HISTORY PAST MEDICAL HISTORYDiagnosisDate?Diabetes mellitus (HCC)??Hypertensive kidney disease, benign??Unspecified sleep apnea? ? ? PAST SURGICAL HISTORY PAST SURGICAL HISTORYProcedureLateralityDate?BX BREAST PERC VACUUM/ROTN?07/04/2007?Right upper outer - Benign?CARPAL TUNNEL RIGHT WRIST?03/01/2006?HYSTEROSCOPY REMOVAL LEIOMYOMATA?05/11/2024?D&C w/ fibroid resection?REMV CATARACT EXTRACAP,INSERT LENSLeft??REMV CATARACT EXTRACAP,INSERT LENSRight??TOTAL KNEE [id number]/10/2019?XCAPSL CTRC RMVL INSJ IO LENS PROSTH W/O ECP?03/01/2006 ? ? ? CURRENT MEDICATIONS Current Outpatient MedicationsMedicationSigDispenseRefill?amitriptyline (ELAVIL) 10 mg tabletTake 10 mg by mouth daily at bedtime.???ascorbic acid, vitamin C, (VITAMIN C) 500 mg tabletTake 500 mg by mouth once daily.???lisinopril (ZESTRIL, PRINIVIL) 20 mg tabletTake 20 mg by mouth once daily.???multivitamins(DAILY VITAMIN TAB)Take one(1) tablet daily.?0?calcium carbonate/vitamin d3(CALCIUM 600 + D 600 MG-125 UNIT TAB)Take 1 tablet by mouth once daily.?0?No current facility-administered medications for this visit. ? ? ALLERGIES: Sulfa (Sulfonamide Antibiotics) and Sulphated Oil ? PERSONAL HISTORY: SOCIAL HISTORY Social History?Tobacco Use?Smoking status:Never?Smokeless tobacco:NeverVaping Use?Vaping status:Never UsedSubstance Use Topics?Alcohol use:No?Drug use:No ? FAMILY HISTORY: FAMILY HISTORY FAMILY HISTORY ProblemRelationAge of Onset?HypertensionMother??Colon CancerMother??HeartFather??CancerFather?? prosate?No Known ProblemsSister??HeartBrother??Prostate CancerBrother??No Known ProblemsBrother??StrokeMaternal Grandmother??HeartMaternal Grandfather??No Known ProblemsPaternal Grandmother??CancerPaternal Grandfather??Alcohol abusePaternal Grandfather? ? ? REVIEW OF SYMPTOMS: GENERAL: denies fevers or chills ENDOCRINOLOGY: has not been on steroids Cardiology : denies palpitations or chest pain Respiratory: denies SOB or cough Hematology: denies history of prolonged bleeding or easy bruising or VTE Allergy: Denies history of personal or family history of allergy to anesthesia ? PHYSICAL EXAMINATION: ? VITALS: Blood pressure 146/84, pulse 86, height 167.6 cm (5' 6), weight 103.4 kg (228 lb), SpO2 99%. ? GENERAL: The patient is well nourished, well hydrated in no acute distress. , The patient is oriented to time, place, and person. NECK: Supple. No lynphadenopathy, normal thyroid, no thyromegaly. LUNGS: Clear to auscultation bilaterally. no wheezes, rhonchi or rales HEART: Regular rate and rhythm, Normal heart sounds, and No murmurs or gallops ?
[2024-07-18 12:13] LABS: Magnesium 1.9 mg/dL (1.5-2.2)
[2024-07-20] VITALS (15 sets, daily range): BP systolic 100–137; BP diastolic 47–77; PULSE 86–96; RESP 15–18; TEMP 36.5–37.4; O2SAT 93–100; BMI 37.5
[2024-07-20] MEDS: Lactated Ringers 1,000 ML 40 ML IV (06:15)
[2024-07-20] MEDS: Magnesium 2 GM for ERAS IV (06:16)
[2024-07-20] MEDS: Acetaminophen 500 MG Tablet 1000 MG PO ×4 (06:20→23:53)
[2024-07-20] MEDS: Celecoxib 200 MG Capsule 400 MG PO (06:20)
[2024-07-20] MEDS: Enoxaparin 40 MG/0.4 ML Syringe SC (06:20)
[2024-07-20] MEDS: Gabapentin 600 MG Tablet PO (06:20)
--- NOTE | 2024-07-20 06:47 | PCM.PRE.AN2 ---
ASA Classification* ASA Classification ASA Classification: 2 Assessment & Plan Anesthesia* Anesthesia Assessment Anesthesia Assessment: Discussed sedation and/or anesthesia options, risks, benefits, and alternatives with patient/parents/legal guardian/POA. Questions invited. The patient/parents/legal guardian/POA seems to understand and agrees to proceed with anesthesia plan. Reviewed the physical assessment, medical history, allergy history and patient home medications list prior to surgery/procedure/anesthetic and documented any changes. Performed airway and anesthesia risk assessments. Anesthesia Type Anesthesia Type: General Anesthesia Focused Assessment* Temperature: 98.4 F Pulse Rate: 89 Blood Pressure: 136/74 Respiratory Rate: 16 Pulse Ox: 99 Airway Assessment Mouth opens: >3 cm Mallampati Score: II Focused Labs Anesthesia Preop lab: CBC WBC 6.4 K/mm3 (4.4-11.0) 05/11/24 08:00 05/11/24 RBC 4.75 M/mm3 (4.2-5.4) 05/11/24 08:00 05/11/24 Hgb 13.9 g/dL (12.0-15.0) 05/11/24 08:00 05/11/24 Hct 40.1 % (37-47) 05/11/24 08:00 05/11/24 Plt Count 104 K/mm3 (150-450) L 05/11/24 08:00 05/11/24 CHEMISTRY Potassium 3.9 mmol/L (3.3-5.1) 05/11/24 08:00 05/11/24 Sodium 137 mmol/L (133-145) 05/11/24 08:00 05/11/24 Magnesium 1.9 mg/dL (1.5-2.2) 07/18/24 10:05 07/18/24 BUN 13 mg/dL (4-19) 05/11/24 08:00 05/11/24 Creatinine 0.93 mg/dL (0.70-1.20) 05/11/24 08:00 05/11/24 Glucose 150 mg/dL (70-99) H 05/11/24 08:00 05/11/24 POC Glucose 145 mg/dL (74-106) H 05/11/24 08:06 05/11/24 TSH 1.97 uIU/mL (0.358-3.74) 01/02/20 11:08 01/02/20 COAG Pre-Assessment Diagnosis/Proposed Procedure Planned Operative Procedure(s): (B) Hysterectomy,LAVH, bilateral salpingo-oophorectomy, cystoscopy Anesthesia History Anesthesia History - nuclear medicine pet ct technologist: Anesthesia History - nuclear medicine pet ct technologist Hx Hospitalization No 07/12/24 14:07 Any Problems With Anesthesia No 07/12/24 14:07 Cholinesterase deficiency No 07/12/24 14:07 You/Your Family Experience No 07/12/24 14:07 fever (hyperthermia) with Relationship Recent Exposure to Contagious No 07/20/24 06:00 Disease Does patient have nerve No 07/12/24 14:07 stimulator Patient instructed to have device shut off --Does patient have Pacemaker No 07/20/24 06:04 or ICD? When Was Last Pacemaker Check QUESTION #4 FULL TEXT: You/Your Family Experience fever (hyperthermia) with Anesthesia Last Oral Intake Last Oral intake: Last Oral Intake NPO since 20:00 07/20/24 06:04 Meds taken in AM with sips of No 07/20/24 06:04 water? Meds patient instructed to take am of surgery PONV PONV - nuclear medicine pet ct technologist: PONV - nuclear medicine pet ct technologist Female Yes 07/12/24 14:07 HX of Motion Sickness Yes 07/12/24 14:07 HX of N/V After Surgery No 07/12/24 14:07 Non-Smoker Yes 07/12/24 14:07 Duration of Surgery greater Yes 07/12/24 14:07 than 60 minutes Number of Risk Factors 4 07/12/24 14:07 PONV Score Severe Risk 07/12/24 14:07 Height & Weight Height & Weight: Anesthesia: Height & Weight Height 5 ft 6 in 07/20/24 06:04 Weight: 105.596 kg 07/20/24 06:04 Body Mass Index (BMI) 37.5 07/20/24 06:04 Respiratory Assessment Respiratory Assessment - nuclear medicine pet ct technologist: Respiratory Tract Infection Hx - nuclear medicine pet ct technologist Hx Respiratory Tract Infection No 07/12/24 14:07 STOP Sleep Apnea STOP Sleep Apnea - nuclear medicine pet ct technologist: STOP Sleep Apnea - nuclear medicine pet ct technologist Hx Hypertension Yes: CONTROLLED WITH MED 07/12/24 14:07 Hx Sleep Apnea Yes 07/12/24 14:07 CPAP Yes 07/12/24 14:07 BIPAP No 07/12/24 14:07 Do you snore loudly (louder than talking or can be heard Do you often feel tired/ fatigued/ sleepy during daytime? Has anyone observed you stop breathing during sleep? STOP Results Positive 07/12/24 14:07 QUESTION #5 FULL TEXT : Do you snore loudly (louder than talking or can be heard through closed doors)? Tobacco Use History Tobacco Use History - nuclear medicine pet ct technologist: Tobacco Use History - nuclear medicine pet ct technologist Tobacco Use Smoking Status Never smoker 07/12/24 14:07 Hx Tobacco Use No 07/12/24 14:07 Years Smoking Packs Smoked per Day Smoking Cessation Date was within the last 15 years Hx Smoking Cessation Date Hx Smoking Cessation Counseling Hematologic Medial History Hematologic Hx - nuclear medicine pet ct technologist: Hematologic Medical Hx - customer advisor Hx of Blood Transfusion No 07/12/24 14:07 Hx of Transfusion in last 3 No 07/12/24 14:07 Months Date of Last Transfusion (if within last 3 months) Ever experience any problems No 07/12/24 14:07 with transfusion(s)? Specify any problems Hx of Preganancy in last 3 N/A 07/12/24 14:07 Months Nurse Filling Out Transfusion NBUCHER 07/12/24 14:07 & Questions: Date: 07/12/24 07/12/24 14:07 Time: 14:08 07/12/24 14:07 Patient unable to answer at this time (ie. confused, unrespo /Reproduction History /Reproductive History - nuclear medicine pet ct technologist: /Reproductive Hx- nuclear medicine pet ct technologist Hx Now Gestational Age (in weeks): EDC: Hx Hx Para Hx Section SAB No 07/12/24 14:07 Active Medications Active Medications: Current Medications Generic Name Dose Route Start Last Admin Trade Name Freq PRN Reason Stop Dose Admin Acetaminophen 1,000 mg 07/20/24 07:30 07/20/24 06:20 Acetaminophen 500 Mg Tablet PO 07/20/24 07:31 1,000 mg PREOP ONE Administration Celecoxib 400 mg 07/20/24 07:30 07/20/24 06:20 Celecoxib 200 Mg Capsule PO 07/20/24 07:31 400 mg PREOP ONE Administration Enoxaparin Sodium 40 mg 07/20/24 07:30 07/20/24 06:20 Enoxaparin 40 Mg/0.4 Ml Syringe SC 07/20/24 07:31 40 mg PREOP ONE Administration Gabapentin 600 mg 07/20/24 07:30 07/20/24 06:20 Gabapentin 600 Mg Tablet PO 07/20/24 07:31 600 mg PREOP ONE Administration Lactated Ringer's 1,000 mls @ 40 mls/hr 07/20/24 07:30 07/20/24 06:15 IV 40 mls/hr .Q25H SOPHY Administration Cefazolin Sodium 2 gm/ Sodium 110 mls @ 150 mls/hr 07/20/24 07:30 Chloride IV 07/20/24 08:13 INTRAOP ONE Lactated Ringer's 1,000 mls @ 40 mls/hr 07/20/24 07:30 IV .Q25H SOPHY Magnesium Sulfate 2 gm/ 104 mls @ 208 mls/hr 07/20/24 07:30 07/20/24 06:16 Dextrose IV 07/20/24 07:59 208 mls/hr INTRAOP ONE Administration Insulin Human Lispro 0 unit 07/20/24 07:30 Insulin Lispro 100 Unit/Ml Insuln.Pen SC Q4H PRN PRN BG >/= 180, SEE PROTOCOL Protocol Ondansetron HCl 4 mg 07/20/24 07:30 Ondansetron 4 Mg/2 Ml Vial IV 07/20/24 07:31 INTRAOP ONE PFSH Medical History Low platelet count Endometrial mass PMB (postmenopausal bleeding) Post-menopausal Anxiety Arthritis Fatty liver Dietary restriction Non-smoker CPAP (continuous positive airway pressure) dependence Leg cramps Hypertension Thrombocytopenia Type 2 diabetes mellitus Home Medications ?Medication ?Instructions ?Recorded ?Last Taken ?Type lisinopril 20 mg tablet 20 mg PO DAILY 11/01/18 07/19/24 20:30 History amitriptyline 10 mg tablet 20 mg PO QHS 03/16/24 07/19/24 History 10 mg ascorbic acid (vitamin C) 500 mg 500 mg PO DAILY 03/16/24 07/18/24 History tablet (C-500) jeecouif-twgf-svzgt acid 240 2 tab PO DAILY 03/16/24 07/18/24 History mcg-vit K 120 anf-quouqk-oqvt 293 tablet (Alive Women's 50 Plus (fruit-veg blend)) elderberry fruit 200 mg capsule 200 mg PO DAILY 05/02/24 07/13/24 History zinc 10 mg tablet 10 mg PO DAILY 05/02/24 Unknown History Allergy/AdvReac Type Severity Reaction Status Date / Time Sulfa (Sulfonamide Allergy Rash Verified 07/20/24 05:58 Antibiotics) Surgical History History of hysteroscopy History of carpal tunnel surgery of right wrist History of carpal tunnel surgery of left wrist Hx of colonoscopy Hx of total knee arthroplasty Hx of eye surgery Hx of eye surgery Hx of right cataract extraction Hx of left cataract extraction Social History Smoking Status: Never smoker Review of Systems (Anesthesia) ROS Narrative System reviewed and no additional complaints, except as documented.
[2024-07-20 06:50] LABS: Bedside Glucose 157 mg/dL (74-106)
[2024-07-20] MEDS: Cefazolin 2 GM in 0.9% Normal Saline (100mL Bag) 100 ML IV (07:30)
--- NOTE | 2024-07-20 07:30 | UT_PTH ---
PATIENT: SHANTEL FOX LOC: MS3 U#:[id number] AGE/SX: 73/F ROOM: TX319 RE07/20/[address]: Dr. Melania Mahoney MD : 1950 BED: 1 DIS: 07/21/2024 SPEC #: [id number] RECD: 07/20/24 13:41 STATUS: BERNADETTE REEyad #: [id number] LOGAN: 07/20/24 07:[address]: Melania Mahoney DEPT: SURGICAL PATHOLOGY RECD BY: Joce Thurman ENTERED: 07/20/24 13:58 SP TYPE: UTERUS OTHR DR: Ambar Duke MD Tissues: A - Uterus, NOS Procedures: Surgery Specimen Level V HEADER OPERATION: hysterectomy PRE-OP DIAGNOSIS: TISSUE SUBMITTED: uterus, cervix, bilateral tubes and ovaries MICROSCOPIC DIAGNOSIS A. Uterus, cervix, bilateral fallopian tubes and ovaries, hysterectomy and bilateral salpingo-oophorectomy: * Cervix: no specific pathologic change. * Endometrium: endometrial hyperplasia without atypia. * Myometrium: leiomyoma x3 (1.5 cm). * Right ovary: no specific pathologic change. * Right fallopian tube: no specific pathologic change. * Left ovary: no specific pathologic change. * Left fallopian tube: no specific pathologic change. MICROSCOPIC DESCRIPTION Slides are reviewed. GROSS DESCRIPTION A. Received in formalin in a container labeled with the patient's name, date of , and uterus, bilateral tubes and ovaries is a hysterectomy specimen with attached cervix and bilateral attached adnexa. The adnexa are amputated and the uterus with cervix is 71.8 g and 9.0 cm from fundus to ectocervix, 3.5 cm from cornu to cornu, and 3.5 cm from anterior to posterior. The serosa is felix-pink, smooth, and glistening. The white-pink ectocervix is previously disrupted and measures 3.5 x 2.5 cm. There is a 1.0 x 0.9 cm ovoid os. The anterior paracervical margin is inked green, and the posterior paracervical margin is inked black. The specimen is bivalved to reveal a 3.0 x 1.0 cm felix-pink and corrugated endocervical canal with multiple cystic spaces measuring up to 0.3 cm in greatest dimension. The predominantly linear endometrial cavity is 3.0 cm in length by 2.1 cm in width. There is red-felix, smooth and glistening endometrium ranging from 0.1 to 0.3 cm in thickness. The anterior endometrial cavity is predominantly occupied by a 1.5 x 1.2 x 1.2 cm white, whorled myometrial nodule. Additionally, 2 white whorled myometrial nodules are identified within the posterior myometrium measuring 0.5 x 0.5 x 0.5 cm and 0.7 x 0.7 x 0.6 cm. No hemorrhage or necrosis is identified. The felix-pink myometrium displays an average thickness of 1.9 cm. The right ovary is 1.9 g and 2.2 x 1.1 x 1.0 cm. The outer surface is felix-pink, and bisection reveals unremarkable ovarian parenchyma. The 4 cm in length by 0.5 cm in diameter fimbriated fallopian tube exhibits felix-pink smooth and glistening serosa with multiple paratubal cysts up to 0.3 cm in greatest dimension. Sectioning reveals a pinpoint lumen. The left ovary is 1.4 g and 1.5 x 1.4 x 0.9 cm. The felix-pink outer surface is smooth, and bisection reveals unremarkable ovarian parenchyma. The 4 cm in length by 0.5 similar in diameter fimbriated fallopian tube exhibits felix-pink, smooth and glistening serosa with an unremarkable fimbriated end. There are multiple paratubal cysts measuring up to 0.2 cm in greatest dimension. Sectioning reveals a pinpoint lumen. Forge Helper sections:A1-2. Anterior cervix to lower uterine segment, bisected and inked orange where sections connectA3-4. Posterior cervix to lower uterine segment, bisected and inked orange where sections connectA5. Anterior full-thickness section with myometrial noduleA6-A8. Entirety of anterior endometrial cavity with adjacent myometrial nodule, submitted in superficial sections and sequentially from fundus to lower uterine segmentA9. Posterior full-thickness [id number]. Entirety of posterior endometrial cavity (A10 includes posterior myometrial nodules) submitted superficial sections and sequentially from fundus to lower uterine segmentA 13. Right adnexaA 14. Left adnexa [facility] 07-20-2024 CPT:78016
[2024-07-20] MEDS: Bupivacaine 0.25% 30 ML Vial (09:45)
[2024-07-20] MEDS: Lidocaine 1%/Epi 1:200 (30ml) 30 ML AMPUL (09:45)
--- NOTE | 2024-07-20 10:46 | PCM.POST.ANE ---
Anesthesia: Postop Eval I Current Vital Signs Temperature: 99.4 F Pulse Rate: 91 Blood Pressure: 106/56 Respiratory Rate: 18 Pulse Ox: 93 Assessment Airway patent: Yes Spontaneous unlabored respirations: Yes nausea: No Vomiting: No Anesthesia Complication: No Fluid Hydration Crystalloid volume administer (ml): 1,600 Total IV fluid infused: 1,600 Progress Note Anesthesia document: Postop Eval 1 completed: Yes
--- NOTE | 2024-07-20 10:47 | PCM.OPRPT ---
Problems Associated Problem List Diagnoses (1) Endometrial hyperplasia with atypia: (2) PMB (postmenopausal bleeding): (3) Skin yeast infection: Operative Report (Standard) Operative Information Date of Procedure: 07/20/24 Pre-Operative Diagnosis: endometrial hyperplasia with atypia, postmenopausal bleeding Post-Operative Diagnosis: same Surgery/Procedure Performed: LAVH, bilateral salpingectomy and cystoscopy enterprise project manager: Yes Panel Lay Up Worker: Neva Mitchell MD Tasks completed by assisted living nursing director: Opening, Closing, Dissecting tissue, Removing tissue, Trocar and Retracting Additional architectural administrative assistant?: Yes Additional Utility Locator #2: Nia Mi MS3 Tasks completed by architectural administrative assistant #2: Closing and Retracting Additional architectural administrative assistant?: No Type of Anesthesia: General RN Documented Start/Stop Times: Operation Date: 07/20/24 07:30 Case Time Into Pre-Op 07/20/24 05:35 Out of Pre-Op 07/20/24 07:26 Anesthesia Start 07/20/24 07:30 Into Room 07/20/24 07:30 Procedure Start 07/20/24 07:55 Procedure End 07/20/24 10:33 Anesthesia End 07/20/24 10:39 Out of Room 07/20/24 10:39 Into Recovery 07/20/24 10:42 Procedure Start Time: 07:55 Procedure Stop Time: 10:33 Select all DRAINS/GRAFTS/IMPLANTS that apply: Drains Drain details: sage Estimated Blood Loss: 130 Fluids Replaced: 1500 cc LR Specimen collected: Yes Description of specimen(s) removed: uterus, cervix, bilateral tubes and ovaries Description of surgery: = The patient was taken to the operating room where she was prepped and draped in the dorsal lithotomy position. Her arms were tucked to the side and padded and her legs were placed in the yellowfin stirrups. Care was taken to ensure that she was placed in a neurologically safe and neutral position. A weighted speculum was placed in the vagina and the anterior lip of the cervix was grasped with a single-tooth tenaculum. The uterus sounded to 8 centimeters. The SORAYA uterine manipulator was placed and secured. The Sage catheter was placed to straight drain. Attention was turned to the abdominal portion of the case. Before skin incisions were made they were infiltrated with 0.5% Marcaine solution for local anesthetic. A 5 mm incision was made just below the umbilicus and while tenting the anterior abdominal wall up with towel clamps a 5 mm blade less trocar and sleeve were advanced directly into the peritoneal cavity. Peritoneal placement was confirmed with the laparoscope the pneumoperitoneum was created, and the underlying abdominal contents were intact. The patient was placed in Trendelenburg and the above findings were noted. Right and left lateral 5 mm trochars were placed under direct visualization without difficulty. The ureters were identified on both sides. The infundibulopelvic ligaments were then clamped sealed and transected with the LigaSure device. The round ligaments were clamped sealed and transected and a window was made in the peritoneum. The utero-ovarian ligaments were then clamped, sealed and transected with the LigaSure device and the pedicles were hemostatic The bladder flap was dissected down with the LigaSure device and blunt dissection and the uterine arteries were then skeletonized. The uterine arteries were clamped, sealed and transected on both sides with the LigaSure device. At this point the pedicles were all examined and found to be hemostatic. Attention was turned to the vaginal portion of the case. 1% lidocaine with dilute epinephrine solution was used to infiltrate the anterior vaginal epithelium over the cervix. The vaginal epithelium was incised around the cervix. The anterior cul-de-sac was entered sharply, then the posterior cul-de-sac was entered sharply. The posterior peritoneum was pushed away from the vaginal cuff somewhat and this is where a lot of bleeding during the case occurred from back bleeding in this area. The uterosacral ligaments were then clamped transected and suture-ligated on both sides. The cardinal ligaments were clamped, transected and suture-ligated. The uterus was brought through the colpotomy incision. At this point, the pedicles were all examined and hemostasis was assured of the pedicles but there was bleeding from the vaginal cuff. A yascvm-sd-pfawd 0 Vicryl suture was placed in the right angle of the vaginal cuff to obtain some hemostasis. The posterior peritoneum was too far away from the vaginal cuff to reapproximate it. I made 2 attempts but it tore through from the tension so it was not reapproximated to the cuff. The vaginal cuff was then closed in a horizontal fashion with interrupted 0 Vicryl pouwep-ph-vlyqz sutures. Care was taken to secure the vagina to the uterosacral ligaments. The Sage catheter was removed and a cystoscopy was performed. The bladder appeared normal and was intact. Both ureteral orifices were noted and both ureteral jets were seen. The cystoscope was removed and the Sage catheter was placed back to straight drain. A sponge stick was placed in the vagina to help place traction against the vaginal cuff. The laparoscope was reinserted into the abdomen and the pneumoperitoneum was re-created. The pedicles were reexamined and found to be hemostatic. There was some oozing from some edges which was secured with the LigaSure device. Some fibrillar was placed in the vaginal angles where they were oozy and some Heema blast was placed over the oozing peritoneum. There is no active bleeding through the Heema blastThe right and left lateral ports were taken out and the sites were hemostatic. The pneumoperitoneum was released and even under low pressure there was no bleeding of any of the pedicles are vaginal cuff. The umbilical port was removed. The umbilical skin incisions were closed with Monocryl suture and skin glue. The vaginal instruments were removed by me and a vaginal sweep was completed by me. The surgery was performed by me with assistance other than the portions dictated as above. I was present for the entire procedure. All sponge lap and needle counts were correct and the patient was transferred to the recovery room in stable condition. Surgical Findings: boggy uterus, retroverted, small atrophic ovaries, normal tubes Complications Complications: No Admit VTE Documentation VTE Present on Admission: No VTE Mechan Device Prophylaxis: SCD's VTE Pharm Prophylaxis ordered?: No Reason prophylaxis not ordered: Treatment Not Indicated
--- NOTE | 2024-07-20 11:01 | POSTOPAN2_ITS ---
Anesthesia Postop Eval I Sum Postop Eval Completion status Anesthesia document: Postop Eval 1 completed: Yes Anesthesia Postop Eval I Summary Anesthesia Postop Eval I Summary: Anesthesia Postop Eval I: Assessment Summary Airway patent Yes 07/20/24 10:46 RADIAL DRILL PRESS [email or web address] Spontaneous unlabored Yes 07/20/24 10:46 RADIAL DRILL PRESS OPERATOR.[email or web address] respirations Mental status nausea No 07/20/24 10:46 RADIAL DRILL PRESS OPERATOR.[email or web address] Vomiting No 07/20/24 10:46 RADIAL DRILL PRESS [email or web address].TNES Anesthesia Postop Eval I: Fluid Summary Crystalloid volume administer 1,600 07/20/24 10:46 RADIAL DRILL PRESS OPERATOR.TNES (ml) Colloids volume administered ( ml) Blood Product volume administered (ml) Total IV fluid infused 1,600 07/20/24 10:46 RADIAL DRILL PRESS [email or web address].[email or web address] Anesthesia Postop Eval I: Summary Notes Anesthesia Complication No 07/20/24 10:46 RADIAL DRILL PRESS OPERATOR.TNES Anesthesia Complication Comment: Post-operative progress note Anesthesia: Postop Eval II Evaluation Mental status: Awake Pain Level: 0 nausea: No Vomiting: No
--- NOTE | 2024-07-20 11:01 | PCM.POSTANE2 ---
Anesthesia Postop Eval I Sum Postop Eval Completion status Anesthesia document: Postop Eval 1 completed: Yes Anesthesia Postop Eval I Summary Anesthesia Postop Eval I Summary: Anesthesia Postop Eval I: Assessment Summary Airway patent Yes 07/20/24 10:46 UNEMPLOYMENT CLAIMS [email or web address].[email or web address] Spontaneous unlabored Yes 07/20/24 10:46 UNEMPLOYMENT CLAIMS [email or web address].TNES respirations Mental status nausea No 07/20/24 10:46 UNEMPLOYMENT CLAIMS [email or web address].TNES Vomiting No 07/20/24 10:46 UNEMPLOYMENT CLAIMS [email or web address].TNES Anesthesia Postop Eval I: Fluid Summary Crystalloid volume administer 1,600 07/20/24 10:46 UNEMPLOYMENT CLAIMS [email or web address].TNES (ml) Colloids volume administered ( ml) Blood Product volume administered (ml) Total IV fluid infused 1,600 07/20/24 10:46 UNEMPLOYMENT CLAIMS [email or web address].TNES Anesthesia Postop Eval I: Summary Notes Anesthesia Complication No 07/20/24 10:46 UNEMPLOYMENT CLAIMS [email or web address].[email or web address] Anesthesia Complication Comment: Post-operative progress note Anesthesia: Postop Eval II Evaluation Mental status: Awake Pain Level: 0 nausea: No Vomiting: No
[2024-07-20] MEDS: Lactated Ringers @ 40 MLS/HR 40 ML IV (11:11)
[2024-07-20 11:13] LABS: Hematocrit 40.2 % (37-47); Hemoglobin 13.8 g/dL (12.0-15.0); Mean Corp Hgb Conc 34.3 g/dL (32-36); Mean Corpuscular Hgb 29.9 pg (27.0-32.0); Mean Platelet Vol. 9.3 fl (6.2-12.0); POSITIVE COUNT YES; RBC Distribution Width CV 13.2 % (11.6-14.6); RBC Distribution Width SD 41.5 fl (35.1-43.9); Red Blood Count 4.62 M/mm3 (4.2-5.4); White Blood Count 6.4 K/mm3 (4.4-11.0)
[2024-07-20 11:29] LABS: Scan Indicated on CBC? Y/N YES- FLAGS NOTED
[2024-07-20 12:10] LABS: Platelet Count 86 K/mm3 (150-450)
[2024-07-20] MEDS: FLUCONAZOLE 150 MG TABLET PO (12:59)
[2024-07-20] MEDS: Erythromycin Base 1 OPTH.TUBE 1 APPLIC LEFT EYE ×2 (14:13→20:40)
[2024-07-20] MEDS: 0.9% Saline Lock 10 ML Syringe IV (20:39)
[2024-07-20] MEDS: Docusate Sodium 100 MG Capsule PO (20:40)
[2024-07-20] MEDS: Amitriptyline 10 MG Tablet 20 MG PO (20:41)
[2024-07-21 05:20] VITALS: BP 127/63; PULSE 90; RESP 16; TEMP 36.6; O2SAT 97
[2024-07-21] MEDS: Acetaminophen 500 MG Tablet 1000 MG PO (05:23)
[2024-07-21 07:00] LABS: Hematocrit 36.1 % (37-47); Hemoglobin 12.6 g/dL (12.0-15.0); Mean Corp Hgb Conc 34.9 g/dL (32-36); Mean Corpuscular Hgb 29.6 pg (27.0-32.0); Mean Corpuscular Volume 84.7 fL (81-99); Mean Platelet Vol. 9.3 fl (6.2-12.0); Platelet Count 108 K/mm3 (150-450); RBC Distribution Width CV 12.8 % (11.6-14.6); RBC Distribution Width SD 38.9 fl (35.1-43.9); Red Blood Count 4.26 M/mm3 (4.2-5.4); White Blood Count 10.2 K/mm3 (4.4-11.0)
[2024-07-21 07:23] VITALS: O2SAT 96
[2024-07-21] MEDS: Lisinopril 20 MG Tablet PO (08:18)
[2024-07-21] MEDS: Docusate Sodium 100 MG Capsule PO (08:18)
[2024-07-21] MEDS: Erythromycin Base 1 OPTH.TUBE 1 APPLIC LEFT EYE (08:19)
[2024-07-21] MEDS: Ensure Plus High Protein 120 ML LIQUID PO (08:20)
--- NOTE | 2024-07-21 08:26 | PCM.PN.BLA ---
Progress Note Pain well-controlled. Average lochia. No nausea or vomiting. Tolerating regular diet. No chest pain or shortness of breath. Physical Exam Narrative General: Awake alert no acute distress Skin warm dry and intact Abdomen soft, nondistended, appropriate tenderness, incisions are clean dry and intact Assessment & Plan Assessment/Plan (1) Endometrial hyperplasia with atypia: PLAN: Plan Postoperative day #1 status post laparoscopic-assisted vaginal hysterectomy with bilateral salpingo-oophorectomy and cystoscopy. Patient is doing well. Blood count is stable. DC home if passes voiding trial. Routine instructions and prescriptions given. Pathology is pending.
--- NOTE | 2024-07-21 08:32 | DCINST_ITS ---
Discharge Instructions Diet Discharge Diet: No restrictions DC O2, CPAP, BIPAP needs Home O2 Discharge instructions: No Dressing / Incision Discharge Activity: May Drive (in 5-7 days) May shower in (days): 1 May resume sexual activity in: 6-8 weeks and - (Nothing in your vagina for 6 weeks. No vaginal or anal intercourse for 6-8 weeks) Dressing / Incision Call your doctor if your incision/area has: Continuous Slow Oozing, Sudden Increased Bleeding, Increased Pain/ Swelling, Increased Redness and Foul Smelling Discharge Call your doctor if you observe: Fever of 101 or Higher Cleanse incision/area with: Soap & Water and - (Your incisions have skin glue, it can get wet, leave the glue on until it falls off. ) Follow Up Care Please Follow Up With: Melania Mahoney MD When: With my office in 1-2 and 6 weeks or as needed. [phone] call or send a [facility] message with questions Test Results: Test results from this visit will be discussed in further detail at your follow- up appointment, if applicable. Discharge Plan Admission Admit Date/Time: 07/20/24 10:32 Primary Reason for Your Visit: Hysterectomy Attending Provider: Melania Mahoney Primary Care Provider: Ambar Duke Discharge Orders/Prescriptions Prescriptions: New oxycodone 5 mg tablet 5 mg PO Q8H PRN (Reason: severe pain) 5 Days Qty: 10 0RF fluconazole 150 mg tablet 150 mg PO Q3D Qty: 2 0RF Rx Instructions: may repeat second dose 72 hrs after first dose if symptoms persist. First dose 07/24/24, second dose 07/27/24 No Action lisinopril 20 MG tablet 20 mg PO DAILY amitriptyline 10 mg tablet 20 mg PO QHS Alive Women's 50 Plus (blend) 240-120-300 mcg tablet 2 tab PO DAILY ascorbic acid (vitamin C) [C-500] 500 mg tablet 500 mg PO DAILY elderberry fruit 200 mg capsule 200 mg PO DAILY zinc 10 mg tablet 10 mg PO DAILY Referrals / Follow Up: Ambar Duke MD [Primary Care Provider] - Disposition Disposition (needs filled in before D/C Order can be placed): Home, Self Care
[2024-07-21 08:51] VITALS: BP 141/68; PULSE 83; RESP 16; TEMP 36.6; O2SAT 100
[2024-07-21] MEDS: oxyCODONE 5 MG Tablet PO (10:08)
--- NOTE | 2024-07-21 11:03 | PHA.DC_ITS ---
Pharmacy [facility] Counseling Pharmacy Service has performed discharge medication reconciliation and counseling for this patient. 1. FLUCONAZOLE 150MG PO Q3D X 2 DOSES 2. OXYCODONE 5MG PO Q8H PRN PAIN The patient's discharge medication list was reviewed for discrepancies and discrepancies were resolved. The patient was counseled on the following discharge medications and changes in medications for homegoing were reviewed. The Reason for Use, instructions for use, and potential side effects were reviewed for all new medications. The patient's questions regarding all of their medications were answered. The patient was able to verbally demonstrate an understanding of their discharge medications. Medications at Discharge Home Medications lisinopril 20 mg tablet 20 mg PO DAILY 11/01/18 amitriptyline 10 mg tablet 20 mg PO QHS 03/16/24 ascorbic acid (vitamin C) 500 mg tablet (C-500) 500 mg PO DAILY 03/16/24 [id number]-[id number] acid 240 mcg-vit K 120 flf-bjmova-cigd 293 tablet (Alive Women's 50 Plus (fruit-veg blend)) 2 tab PO DAILY 03/16/24 elderberry fruit 200 mg capsule 200 mg PO DAILY 05/02/24 zinc 10 mg tablet 10 mg PO DAILY 05/02/24 fluconazole 150 mg tablet 150 mg PO Q3D 2 doses #2 tabs 07/21/24 oxycodone 5 mg tablet 5 mg PO Q8H PRN severe pain 5 days #10 TABLETS 07/21/24
== END 2024-07-21 10:39 | disposition home or self-care (01) ==
LOC: SDC 11:20 → MS3 11:20
PROVIDERS: Anesthesiology; Admitting Provider Obstetrics & Gynecology; PCP Family Medicine; Referring Provider Obstetrics & Gynecology; Visit Provider Obstetrics & Gynecology
PROC: 0UT9FZZ Resection of Uterus, Via Natural or Artificial Opening With Percutaneous Endoscopic Assistance (ICD-10-PCS; CPT 58552; principal; 2024-07-20 07:05)
DX: N85.02 Endometrial intraepithelial neoplasia [EIN] (principal); N95.0 Postmenopausal bleeding; B37.2 Candidiasis of skin and nail; D25.9 Leiomyoma of uterus, unspecified; I12.9 Hypertensive chronic kidney disease with stage 1 through stage 4 chronic kidney disease, or unspecified chronic kidney disease; N18.9 Chronic kidney disease, unspecified; G47.30 Sleep apnea, unspecified; Z79.899 Other long term (current) drug therapy
CPT/HCPCS: 58552; 00944; 36415; 82962; 83735; 85027; 86850; 86900; 86901; 88307; 99221; A4216; G0378; J2405